=== PATIENT | male | born 1990 | race Caucasian/White ===

== ENCOUNTER → 2021-05-24 10:46 | Outpatient (BNVA) | payer SELFPAY | PROVIDERS: Visit Provider Physician Assistant Medical | DX: Z02.79 Encounter for issue of other medical certificate (principal) ==

== ENCOUNTER 2022-12-04 12:13 | Emergency (ER) | payer MEDICAID, SELFPAY ==
[2022-12-04 12:36] VITALS: BP 143/80; PULSE 93; RESP 18; TEMP 36.4; O2SAT 100; BMI 27.3
--- NOTE | 2022-12-04 12:36 | ED_ITS ---
HPI - Skin/Abscess/Foreign Bdy General Chief complaint: General Medical <LE Perea - Last Filed: 12/04/22 12:37> Stated complaint: Finger pain <LE Perea - Last Filed: 12/04/22 12:37> Time Seen by Provider: 12/04/22 14:23 <LE Perea - Last Filed: 12/04/22 12:37> History of Present Illness HPI narrative: Patient complains of redness pain and swelling to the right middle finger, he did not injury it, he has no fever, no other rashes or swelling in his body, no numbness no weakness no tingling, no red stripe up his arm <LE Sommers - Last Filed: 12/04/22 15:19> Related Data Home medications: Previous Rx's Medication Instructions Recorded doxycycline hyclate 100 mg tablet 100 mg PO BID 7 days #14 tabs 12/04/22 ibuprofen 600 mg tablet 600 mg PO Q6H PRN pain #20 tabs 12/04/22 <LE Perea - Last Filed: 12/04/22 12:37> Allergies/Adverse reactions: Allergies Allergy/AdvReac Type Severity Reaction Status Date / Time No Known Allergies Allergy Verified 12/04/22 12:39 <LE Perea - Last Filed: 12/04/22 12:37> [facility] Past Medical History Source: nursing notes reviewed <LE Sommers - Last Filed: 12/04/22 15:19> Social History Social History: Social History Advance Directives: No Advance Directives Information Provided: No <LE Perea - Last Filed: 12/04/22 12:37> Physical Exam Vital Signs: Vital Signs: Last Vital Signs Temp 97.6 F 12/04/22 12:36 Pulse 75 12/04/22 14:58 Resp 16 12/04/22 14:58 BP 136/59 L 12/04/22 14:58 Pulse Ox 100 12/04/22 14:58 O2 Del Method 12/04/22 14:58 BMI result Body Mass Index 27.3 <LE Perea Last Filed: 12/04/22 12:37> Vital Signs: Last Vital Signs Temp 97.6 F 12/04/22 12:36 Pulse 75 12/04/22 14:58 Resp 16 12/04/22 14:58 BP 136/59 L 12/04/22 14:58 Pulse Ox 100 12/04/22 14:58 O2 Del Method 12/04/22 14:58 BMI result Body Mass Index 27.3 <LE Sommers Last Filed: 12/04/22 15:19> General appearance no distress Head is normocephalic atraumatic Neck is supple Respiratory no distress Extremities the right middle finger has a paronychia around the lateral aspect of the nail bed with swelling redness and tenderness around the nail bed on the lateral aspect, all joints have full range of motion there is no deficit in tendon function and neurovascular intact distal, there is no discharge skin is intact and there is no lymphangitis Other extremities are normal <LE Sommers Last Filed: 12/04/22 15:19> Course Course Course Narrative: RME - 32 yo male presenting with 4 days of worsening right middle finger pain, swelling and tenderness to the distal portion around the nail bed. Exam c/w paronychia. Not diabetic. Stable to go to back to waiting room until treatment room is available. <LE Perea Last Filed: 12/04/22 12:37> RME - 32 yo male presenting with 4 days of worsening right middle finger pain, swelling and tenderness to the distal portion around the nail bed. Exam c/w paronychia. Not diabetic. Stable to go to back to waiting room until treatment room is available. Patient with paronychia of the middle finger with no systemic fever, no felon no tendon function impairment Procedure note the finger is cleansed with Betadine Digital block is applied with 6 cc of 1% lidocaine Nail bed is lifted with scalpel and probed with forceps with discharge of pus and dressing was applied <LE Sommers Last Filed: 12/04/22 15:19> Discharge Plan Discharge Clinical Impression: Paronychia of finger <LE Perea Last Filed: 12/04/22 12:37> Patient Disposition: Home, Self-Care <LE Perea Last Filed: 12/04/22 12:37> Additional Instructions: If all is going well you can pull out the packing and soak the finger in warm water or warm water with Epsom salts If you are not sure if it is getting better and still experiencing pain swelling and redness return in 2 days for packing removal and wound check Return any time for spreading redness worse pain and swelling fever red stripe up arm any sign of worsening infection <LE Perea - Last Filed: 12/04/22 12:37> Prescriptions: New doxycycline hyclate 100 mg tablet 100 mg PO BID 7 Days Qty: 14 0RF Rx Instructions: Take with food ibuprofen 600 mg tablet 600 mg PO Q6H PRN (Reason: pain) Qty: 20 0RF <LE Perea - Last Filed: 12/04/22 12:37>
[2022-12-04 14:58] VITALS: BP 136/59; PULSE 75; RESP 16; O2SAT 100
[2022-12-04] MEDS: Lidocaine HCl 1 % MPF 2 ML VIAL INFILTRATI ×4 (15:44)
--- NOTE | 2022-12-04 15:45 | PC.NURSE ---
Patient seen and discharged by provider .
== END 2022-12-04 15:47 | disposition home or self-care (01) ==
PROVIDERS: Emergency Provider Emergency Medicine
DX: L03.011 Cellulitis of right finger (principal); Z79.899 Other long term (current) drug therapy
CPT/HCPCS: 10060; 99284

== ENCOUNTER 2023-07-11 12:47 | Emergency (ER) | payer MEDICAID, SELFPAY ==
[2023-07-11] VITALS (9 sets, daily range): BP systolic 107–143; BP diastolic 62–81; PULSE 76–100; RESP 15–18; TEMP 36.9–37.5; O2SAT 100; BMI 25.4
--- NOTE | ~2023-07-11 | US_ITS ---
EXAMINATION: US SCROTUM CLINICAL INFORMATION: Multiple groin and scrotal abscesses. COMPARISON: None available. TECHNIQUE: A sonogram of the scrotum was performed assessing peralta-scale appearance and color Doppler flow. Spectral Doppler analysis of the arterial and venous flow were performed in the testes bilaterally. FINDINGS: RIGHT: Right testicle measures 5.3 x 3.2 x 3.2 cm, volume 27.9 mL. Limited testicular microlithiasis. No suspicious mass. Spectral Doppler analysis of the arterial and venous flow is normal in the right testis. Right epididymal head is normal in size. No right hydrocele or varicocele is seen. Right epididymal Doppler flow is normal. LEFT: Left testicle measures 4.5 x 2.8 x 2.7 cm, volume 8.2 mL. Limited testicular microlithiasis. No suspicious mass. Spectral Doppler analysis of the arterial and venous flow is normal in the left testis. Left epididymal head is remarkable for a 2 mm epididymal head cyst. No left varicocele is seen. Left epididymal Doppler flow is increased. There is trace complex left hydrocele. No sonographic correlate to the first reported area of concern. Corresponding to the second reported area of concern is a 3.4 x 5.2 x 1.5 cm left inguinal complex fluid collection which appears to be tracking to the skin surface, with surrounding hypervascularity. US/US scrotum IMPRESSION: * Corresponding to the second reported area of concern is a 5.2 cm complex left inguinal fluid collection which appears to be tracking to the skin surface, with surrounding hypervascularity suggestive of abscess. No sonographic correlate to the first reported area of concern. * The left epididymis is hypervascular which could be seen in the setting of epididymitis though could also potentially be reactive in the setting of associated soft tissue infection. Trace complex left hydrocele. * Limited testicular microlithiasis is present without intratesticular mass or other worrisome findings. Testicular microlithiasis is present without intratesticular mass or other worrisome findings. In the absence of any other risk factors for testicular cancer (e.g., personal history of testicular cancer, a father or brother with testicular cancer, history of cryptorchidism or maldescent, testicular atrophy, or other risk factors), no further imaging or biochemical follow-up is necessary; all that is recommended is routine monthly testicular self-examination. However, if the patient has risk factors for testicular cancer, referral to a urologist for evaluation and determination of an optimal follow-up strategy is recommended. Reference: baylee Kahn. al. AJR: April 2016.
--- NOTE | 2023-07-11 12:59 | ED.GENADULT ---
HPI - General Adult General Chief complaint: Skin/Abscess/Foreign Body Stated complaint: L side abd pain Time Seen by Provider: 07/11/23 13:35 Source: patient, RN notes reviewed and old records reviewed Mode of arrival: ambulatory History of Present Illness HPI narrative: 33-year-old male with no significant past medical history presenting to the ED complaining of multiple groin ingrown hairs/abscesses x2 weeks. States they are currently open and draining, tried to open at home. Admits to similar symptoms in the past. Denies abdominal pain, nausea/vomiting, fever, hematuria, difficulty with urinating or BMs, bloody BMs Onset (ago): week(s) Related Data Previous Rx's Medication Instructions Recorded doxycycline hyclate 100 mg tablet 100 mg PO BID 7 days #14 tabs 12/04/22 ibuprofen 600 mg tablet 600 mg PO Q6H PRN pain #20 tabs 12/04/22 cephalexin 500 mg capsule 500 mg PO QID 7 days #28 caps 07/11/23 doxycycline hyclate 100 mg tablet 100 mg PO BID 7 days #14 tabs 07/11/23 Allergies Allergy/AdvReac Type Severity Reaction Status Date / Time No Known Allergies Allergy Verified 12/04/22 12:39 Review of Systems Review of Systems: Constitutional: No Fever, No Chills ENT/Mouth: No Ear Pain, No Nasal Congestion, No sore throat, No Rhinorrhea, No Swallowing Difficulty Cardiovascular: No Chest Pain, No SOB Respiratory: No Cough, No Sputum Gastrointestinal: No Nausea, No Vomiting, No Abdominal pain Genitourinary: No Dysuria, No Urinary Incontinence/retention, No Urgency, No Flank Pain Musculoskeletal: No joint pain, No Myalgias, No Joint Swelling Skin: +Skin Lesions, No rash Neuro: No Weakness, No Numbness, No Paresthesias Yes all other systems are reviewed and are negative Constitutional: Constitutional: Reports as per HPI [facility] Past Medical History Attestation statement: The following information was validated with the patient. Source: old records reviewed Social History Social History Advance Directives: No Advance Directives Information Provided: No Physical Exam ED Vital Signs: Vital Signs - 24 hr 07/11/23 13:00 07/11/23 18:05 Temperature 98.9 F 99.1 F Pulse Rate 100 83 Respiratory Rate 18 18 Blood Pressure 143/81 H 124/77 Pulse Oximetry 100 Oxygen Delivery Method Room Air BMI result Body Mass Index 25.4 Const General: cooperative, healthy appearing and no acute distress Orientation/consciousness: patient oriented x3 Limitations: no limitations HENMT Head: Yes normal to inspection and Yes atraumatic Ears: hearing grossly normal bilaterally General nose exam: Normal external nose present Face and sinus: Yes normal facial exam Eyes General: appearance normal, both eyes and all related structures EOM: EOMs intact bilaterally Neck Neck: Yes normal visual inspection and Yes no meningeal signs Resp Effort & Inspection: normal respiratory effort and no respiratory distress Cardio Rate: regular rate Heart sounds: S1 normal heart sound present and S2 normal heart sound present GI Inspection: Yes normal to inspection Palpation (GI): Soft to palpation, nontender, no guarding and not rigid Other: + multiple indurated and draining abscesses to bilateral groin/inguinal areas and to left scrotum. Left scrotal abscess with fluctuance. Expressible pus. Tender to palpation. No overlying erythema/warmth or evidence of Ene's gangrene Skin Rashes: no rashes Neuro General: patient oriented x3, tone normal and no meningeal signs Cranial nerves: Yes CN's II-XII intact bilaterally Gait exam (Neuro): Normal gait present Extrem General: Yes normal to inspection Course Course Course Narrative: RME performed by Corrie Grady PA-C. Patient is a 33 year old assigned male at presenting to the emergency department with 2 ingrown hairs to his left groin. Patient placed back in the waiting room pending room availability. >> case discussed with General surgery, Dr. Torres who will perform bedside I&D -1612--no leukocytosis. Anemic to 6.7/22.5 > macrocytic anemia. Platelets low. >> patient denies fatigue, SOB, melena/bloody BMs, hematuria, family history of anemia/personal history of anemia. Patient denies being ETOH abuser > case discussed with Dr. Rios who also spoke with patient. Will consult Hematology > will obtain occult stool, add folate/B12 1611--US scrotum IMPRESSION: *? Corresponding to the second reported area of concern is a 5.2 cm complex left inguinal fluid collection which appears to be tracking to the skin surface, with surrounding hypervascularity suggestive of abscess. No sonographic correlate to the first reported area of concern. *? The left epididymis is hypervascular which could be seen in the setting of epididymitis though could also potentially be reactive in the setting of associated soft tissue infection. Trace complex left hydrocele. *? Limited testicular microlithiasis is present without intratesticular mass or other worrisome findings. Testicular microlithiasis is present without intratesticular mass or other worrisome findings. In the absence of any other risk factors for testicular cancer (e.g., personal history of testicular cancer, a father or brother with testicular cancer, history of cryptorchidism or maldescent, testicular atrophy, or other risk factors), no further imaging or biochemical follow-up is necessary; all that is recommended is routine monthly testicular self-examination. However, if the patient has risk factors for testicular cancer, referral to a urologist for evaluation and determination of an optimal follow-up strategy is recommended. -occult stool negative. -Case discussed with Hematology, Dr. Kuhn who recommended transfusion, and follow-up for workup > blood consent signed and in patient's chart -General surgery, Dr. Torres performed I&D at bedside recommended shower b.i.d., dressing changes b.i.d. and p.r.n. in his office will contact patient on Friday --1814--ED care transferred to LE Farrell pending transfusion and dispo home Medications Administered Discontinued Medications Generic Name Dose Route Start Last Admin Trade Name Freq PRN Reason Stop Dose Admin Cephalexin HCl 500 mg 07/11/23 16:30 07/11/23 17:32 Cephalexin 500 Mg Capsule PO 07/11/23 16:31 500 mg ONCE ONE Administration Doxycycline Monohydrate 100 mg 07/11/23 16:30 07/11/23 17:32 Doxycycline Monohydrate 100 Mg Capsule PO 07/11/23 16:31 100 mg ONCE ONE Administration Lidocaine/Epinephrine 30 ml 07/11/23 15:48 07/11/23 16:50 Lidocaine Hcl 1% Pf/Epi 1:200,000 30 Ml Vial INFILTRATI 07/11/23 15:49 30 ml ONCE ONE Administration Medical Decision Making Medical Decision Making MDM Narrative: 33-year-old male with no significant past medical history presenting to the ED complaining of multiple groin ingrown hairs/abscesses x2 weeks. On exam VSS, NAD/nontoxic appearing, abdomen soft/nontender, physical exam as noted above with multiple indurated and draining abscesses to bilateral groin/inguinal areas and left scrotum. + fluctuance. No evidence of Ene gangrene. No evidence of active cellulitis. Plan: Labs including lactic/blood cultures, scrotal ultrasound, surgical consult Please refer to course for remaining clinical decision making, interpretation of labs/imaging results, and discussions with consultants and/or family members. 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 Torres & Hematology-Dr. Kuhn) Lab Data MDM Lab Attestation statement: I reviewed the patient's lab results. 07/11/23 15:04 07/11/23 15:04 Labs: Lab Results 07/11/23 07/11/23 07/11/23 Range/Units 15:04 15:04 15:40 WBC 5.0 (4.8-10.8) X10*3/uL RBC 2.24 L (4.60-5.80) X10*6/uL Hgb 6.7 L* (14.0-18.0) g/dl Hct 22.5 L (42.0-52.0) % MCV 100.4 H (80.0-98.0) fL MCH 29.9 (27.0-33.0) pg MCHC 29.8 L (31.0-36.0) g/dl RDW 18.5 H (11.0-16.0) % Plt Count 131 L (160-400) X10*3/uL MPV 10.2 (9.4-12.4) fL Immature Gran % (Auto) 0.6 H (0.0-0.4) % Neut % (Auto) 75.5 H (45-73) % Lymph % (Auto) 17.1 L (20-40) % [place]oke % (Auto) 6.0 (2-11) % Eos % (Auto) 0.4 (0-4) % Baso % (Auto) 0.4 (0-2) % Lymph # (Auto) 0.9 L (1.2-4.9) X10*3/uL [place] # (Auto) 0.3 (0.1-1.2) X10*3/uL Eos # (Auto) 0.0 (0.0-0.4) X10*3/uL Baso # (Auto) 0.0 (0.0-0.2) X10*3/uL Abs Immat Gran (auto) 0.03 (0.00-0.03) X10*3/uL Absolute Neuts (auto) 3.8 (2.0-8.3) x10*3/uL Absolute Nucleated RBC 0.000 (0.0-0.012) X10*3/uL Nucleated RBC % (auto) 0.0 (0.0-0.2) /100WBC Sodium 139 (135-145) mmol/L Potassium 4.0 (3.3-5.1) mmol/L Chloride 108 (96-108) mmol/L Carbon Dioxide 25 (22-29) mmol/L Anion Gap 10 L (12-20) BUN 8 L (9-16) mg/dL Creatinine 0.84 (0.5-1.4) mg/dL Estim Creat Clear Calc 119.1 Estimated GFR > 60 Random Glucose 82 (60-115) mg/dL Lactic Acid 1.6 (0.5-2.0) mmol/L Calcium 9.2 (8.4-10.2) mg/dL Magnesium 2.1 (1.6-2.6) mg/dL Ferritin 11 L (20-250) ng/mL Total Bilirubin 0.8 (0.0-1.0) mg/dL Direct Bilirubin 0.3 (0.0-0.5) mg/dL AST 68 H (5-37) U/L ALT 22 (0-40) U/L Alkaline Phosphatase 85 (39-117) U/L Total Protein 6.8 (6.5-8.0) g/dL Albumin 4.1 (3.5-5.0) g/dL Urine Color Urine Appearance Urine pH (5.0-9.0) Ur Specific [place] (1.005-1.025) Urine Protein (Neg-Trace) mg/dL Urine Glucose (UA) (Negative) mg/dL Urine Ketones (Negative) mg/dL Urine Blood (Negative) Urine Nitrite (Negative) Ur Leukocyte Esterase (Negative) Urine RBC (0-2) /HPF Urine WBC (0-5) /HPF Ur Squamous Epith Cells (0-2) /HPF Other Crystals Urine Bacteria (None Seen) Hyaline Casts (0-2) /LPF Stool Occult Blood (NEGATIVE) Blood Type Antibody Screen Crossmatch 07/11/23 07/11/23 07/11/23 Range/Units 16:07 16:32 17:08 WBC (4.8-10.8) X10*3/uL RBC (4.60-5.80) X10*6/uL Hgb (14.0-18.0) g/dl Hct (42.0-52.0) % MCV (80.0-98.0) fL MCH (27.0-33.0) pg MCHC (31.0-36.0) g/dl RDW (11.0-16.0) % Plt Count (160-400) X10*3/uL MPV (9.4-12.4) fL Immature Gran % (Auto) (0.0-0.4) % Neut % (Auto) (45-73) % Lymph % (Auto) (20-40) % [place] % (Auto) (2-11) % Eos % (Auto) (0-4) % Baso % (Auto) (0-2) % Lymph # (Auto) (1.2-4.9) X10*3/uL [place] # (Auto) (0.1-1.2) X10*3/uL Eos # (Auto) (0.0-0.4) X10*3/uL Baso # (Auto) (0.0-0.2) X10*3/uL Abs Immat Gran (auto) (0.00-0.03) X10*3/uL Absolute Neuts (auto) (2.0-8.3) x10*3/uL Absolute Nucleated RBC (0.0-0.012) X10*3/uL Nucleated RBC % (auto) (0.0-0.2) /100WBC Sodium (135-145) mmol/L Potassium (3.3-5.1) mmol/L Chloride (96-108) mmol/L Carbon Dioxide (22-29) mmol/L Anion Gap (12-20) BUN (9-16) mg/dL Creatinine (0.5-1.4) mg/dL Estim Creat Clear Calc Estimated GFR Random Glucose (60-115) mg/dL Lactic Acid (0.5-2.0) mmol/L Calcium (8.4-10.2) mg/dL Magnesium (1.6-2.6) mg/dL Ferritin (20-250) ng/mL Total Bilirubin (0.0-1.0) mg/dL Direct Bilirubin (0.0-0.5) mg/dL AST (5-37) U/L ALT (0-40) U/L Alkaline Phosphatase (39-117) U/L Total Protein (6.5-8.0) g/dL Albumin (3.5-5.0) g/dL Urine Color Dark Yellow Urine Appearance Cloudy Urine pH 6.0 (5.0-9.0) Ur Specific [place] 1.025 (1.005-1.025) Urine Protein Negative (Neg-Trace) mg/dL Urine Glucose (UA) Negative (Negative) mg/dL Urine Ketones Trace (Negative) mg/dL Urine Blood Small (1+) H (Negative) Urine Nitrite Negative (Negative) Ur Leukocyte Esterase Negative (Negative) Urine RBC >20 H (0-2) /HPF Urine WBC 0-5 (0-5) /HPF Ur Squamous Epith Cells 0-2 (0-2) /HPF Other Crystals Present Urine Bacteria None Seen (None Seen) Hyaline Casts 6-10 (0-2) /LPF Stool Occult Blood NEGATIVE (NEGATIVE) Blood Type A Positive Antibody Screen NEGATIVE Crossmatch See Detail Independent Interpretation I performed an independent interpretation of an: Ultrasound Radiology Impression Discussion of test interpretation with radiology: I have reviewed the radiologist's reading. External Record Review External record reviewed: Inpatient record, Office record, Outpatient record, Prior outpatient labs, Prior outpatient radiology, Primary care record and Outside ED record Tests considered The following testing was considered but not selected: As above Prescription Management I considered prescription management with: Pain Medication and Antibiotic Critical Care Time Critical Care Time Critical Care Time: Yes Total Critical Care Time: 60 Attestation: I have personally provided critical care time exclusive of time spent on separately billable procedures. Time includes review of lab data, radiology results, discussion with consultants, and monitoring for potential decompensation. Intervention performed as documented. Discharge Plan Discharge Clinical Impression: Scrotal abscess, Anemia Patient Disposition: Home, Self-Care Instructions: Abscess (ED), Anemia (ED) Additional Instructions: Your abscesses were drained by surgery today in the emergency department. Keflex & doxycycline or antibiotics please take as prescribed Please shower twice a day and change your dressing twice a day or more as needed Surgery office will call you Friday for close follow-up Your also notably anemic in the emergency department with a low blood count, we transfused 2 blood, you need to follow-up with Hematology for further workup If he develops any bleeding, lightheadedness/dizziness, black or bloody stool, shortness of breath return to the ED immediately Prescriptions: New doxycycline hyclate 100 mg tablet 100 mg PO BID 7 Days Qty: 14 0RF cephalexin 500 mg capsule 500 mg PO QID 7 Days Qty: 28 0RF No Action doxycycline hyclate 100 mg tablet 100 mg PO BID 7 Days Qty: 14 0RF Rx Instructions: Take with food ibuprofen 600 mg tablet 600 mg PO Q6H PRN (Reason: pain) Qty: 20 0RF Referrals: [facility] – [place] General Surgeons [Provider Group] - 3 days [facility] – [place] Oncology/Hematology [Provider Group] Stand Alone Forms: Work/School Release
--- NOTE | 2023-07-11 14:44 | ED.SKABFB ---
HPI - Skin/Abscess/Foreign Bdy General Chief complaint: Skin/Abscess/Foreign Body Stated complaint: L side abd pain Time Seen by Provider: 07/11/23 13:35 Source: RN notes reviewed and old records reviewed Related Data Previous Rx's Medication Instructions Recorded doxycycline hyclate 100 mg tablet 100 mg PO BID 7 days #14 tabs 12/04/22 ibuprofen 600 mg tablet 600 mg PO Q6H PRN pain #20 tabs 12/04/22 Allergies Allergy/AdvReac Type Severity Reaction Status Date / Time No Known Allergies Allergy Verified 12/04/22 12:39 Review of Systems Review of Systems: Yes all other systems are reviewed and are negative Constitutional: Constitutional: Reports as per [facility] Past Medical History Attestation statement: The following information was validated with the patient. Source: old records reviewed Social History Social History Advance Directives: No Advance Directives Information Provided: No Physical Exam Vital Signs: Vital Signs: Last Vital Signs Temp 98.9 F 07/11/23 13:00 Pulse 100 07/11/23 13:00 Resp 18 07/11/23 13:00 BP 143/81 H 07/11/23 13:00 Pulse Ox 100 07/11/23 13:00 O2 Del Method Room Air 07/11/23 13:00 BMI result Body Mass Index 25.4 Const: General: cooperative, healthy appearing and no acute distress Orientation/consciousness: patient oriented x3 Limitations: no limitations HEENT: Head: Yes normal to inspection and Yes atraumatic Ears: hearing grossly normal bilaterally General nose exam: Normal external nose present Face and sinus: Yes normal facial exam Eyes: General: appearance normal, both eyes and all related structures EOM: EOMs intact bilaterally Neck: Neck: Yes normal visual inspection and Yes no meningeal signs Resp: Effort & Inspection: normal respiratory effort and no respiratory distress Cardio: Rate: regular rate GI: Inspection: Yes normal to inspection Palpation (GI): Soft to palpation, nontender, no guarding and not rigid Skin: Rashes: no rashes Wounds: no wounds Neuro: General: patient oriented x3, tone normal and no meningeal signs Cranial nerves: Yes CN's II-XII intact bilaterally Gait exam (Neuro): Normal gait present Extrem: General: Yes normal to inspection Medical Decision Making Medical Decision Making MDM Narrative: Please refer to course for remaining clinical decision making, interpretation of labs/imaging results, and discussions with consultants and/or family members. Differential Diagnosis Differential Diagnoses: The differential diagnosis associated with the presentation includes As above Admission/Observation Consideration of admission/observation: Escalation of care including admission/observation considered Lab Data MDM Lab Attestation statement: I reviewed the patient's lab results. Radiology Impression Discussion of test interpretation with radiology: I have reviewed the radiologist's reading. External Record Review External record reviewed: Inpatient record, Office record, Outpatient record, Prior outpatient labs, Prior outpatient radiology, Primary care record and Outside ED record Tests considered The following testing was considered but not selected: As above Discharge Plan Discharge Prescriptions: No Action doxycycline hyclate 100 mg tablet 100 mg PO BID 7 Days Qty: 14 0RF Rx Instructions: Take with food ibuprofen 600 mg tablet 600 mg PO Q6H PRN (Reason: pain) Qty: 20 0RF
[2023-07-11 15:30] LABS: Lactic Acid 1.6 mmol/L (0.5-2.0)
[2023-07-11 15:33] LABS: Anion Gap 10 (12-20); Blood Urea Nitrogen 8 mg/dL (9-16); Calcium 9.2 mg/dL (8.4-10.2); Carbon Dioxide 25 mmol/L (22-29); Chloride 108 mmol/L (96-108); Creatinine Clr Calc Pharmacy 119.1; Estimated Glomerular Filt Rate > 60; Glucose Random 82 mg/dL (60-115); Sodium 139 mmol/L (135-145)
[2023-07-11 15:47] LABS: Basophils Percent Auto 0.4 % (0-2); Eosinophils Percent Auto 0.4 % (0-4); Hematocrit 22.5 % (42.0-52.0); Imm Gran Abs Auto 0.03 X10*3/uL (0.00-0.03); Imm Gran Pct Auto 0.6 % (0.0-0.4); Lymphocytes Absolute Auto 0.9 X10*3/uL (1.2-4.9); Lymphocytes Percent Auto 17.1 % (20-40); Mean Corpuscular HGB Conc 29.8 g/dl (31.0-36.0); Mean Corpuscular Hemoglobin 29.9 pg (27.0-33.0); Mean Corpuscular Volume 100.4 fL (80.0-98.0); Mean Platelet Volume 10.2 fL (9.4-12.4); Monocytes Absolute Auto 0.3 X10*3/uL (0.1-1.2); Neutrophils Absolute Auto 3.8 x10*3/uL (2.0-8.3); Neutrophils Percent Auto 75.5 % (45-73); Platelet Count 131 X10*3/uL (160-400); Red Blood Count 2.24 X10*6/uL (4.60-5.80); Red Cell Distribution Width 18.5 % (11.0-16.0)
--- NOTE | 2023-07-11 15:52 | P.CONGS_ITS ---
History of Present Illness Consult details Consult date: 07/11/23 Narrative: The patient is a 33-year-old gentleman with a history of recurring hidradenitis infections in his left groin. 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 He notes that these infections started several days ago, he saw his PCP and was started on antibiotics but the drainage continued. He denies an y fevers and chills. He also denies any weakness or nicotine use which is relevant is he is noted to have a significant anemia today for Hb 6.7. He denies any other medical problems with the exception of the recurring infections in his groin. He notes that his mother had some sort of anemia and t he his father had some sort of hematoma recently that was intra-abdominal but does not know any of the specifics. He is unaware of any malignancy or other significant health problems in the immediate family. I offered French interpretive services to the patient but he declined. Review of Systems Review of Systems: Yes all other systems are reviewed and are negative Constitutional: Constitutional: Reports as per [facility] Social History Social History Advance Directives: No Advance Directives Information Provided: No Meds Allergies Allergy/AdvReac Type Severity Reaction Status Date / Time No Known Allergies Allergy Verified 12/04/22 12:39 Physical Exam Vital Signs: Vital Signs: Last Vital Signs Temp 98.9 F 07/11/23 13:00 Pulse 100 07/11/23 13:00 Resp 18 07/11/23 13:00 BP 143/81 H 07/11/23 13:00 Pulse Ox 100 07/11/23 13:00 O2 Del Method Room Air 07/11/23 13:00 BMI result Body Mass Index 25.4 On exam he is a pleasant gentleman appearing stated age He is nontoxic and in no acute distress In his left groin, in the inguinal area and in the left scrotum, large, open draining abscesses are present. The scrotal abscess measures approximately 4 by 4 cm; the 2 smaller left inguinal abscesses or oblong measuring 2 x 3 cm. Results Labs 07/11/23 15:04 07/11/23 15:04 Labs: Abnormal lab results 07/11/23 Range/Units 15:04 Anion Gap 10 L (12-20) BUN 8 L (9-16) mg/dL [facility] 07/11/23 15:04 Sodium 139 Potassium 4.0 Chloride 108 Carbon Dioxide 25 BUN 8 L Creatinine 0.84 Calcium 9.2 Hb 6.7, Plts low nml Assessment and Plan (1) Scrotal abscess: Status: Acute (2) Hidradenitis suppurativa: Status: Acute (3) Anemia: Status: Acute Plan Options including antibiotics verses incision and drainage were discussed and apparently understood. I recommended proceeding with I and D under local. Patient tolerated the procedure well. Postoperative instructions regarding wound care, specifically, the patient will shower twice a day using soap, rinse the area and change the dressings at least twice a day and as needed. He is advised not to use tape. My office will contact him for follow-up appointment on Friday. For medical reasons, he may not work. Teagan sent abx, Keflex to the patient's pharmacy. Time Spent With Patient Time: Total time managing care of this patient today ____ minutes. Procedures Date of Service Date of Service: 07/11/23 Abscess I/D Consent for Procedure: Elective - informed consent obtained Site: other (left scrotum) Side (if applicable): left Anesthetic used: with epi Technique: incised with #11 blade Amount of fluid (mL): 4 Packing used?: none Complications: pain Additional comments: tolerated well, culture obtained
[2023-07-11 15:53] LABS: Hemoglobin 6.7 g/dl (14.0-18.0); MANUAL DIFF FLAG NO
[2023-07-11 16:16] LABS: OBS Int Ctl Valid YES; OBS1 NEGATIVE (NEGATIVE)
--- NOTE | 2023-07-11 16:24 | PC.NURSE ---
md haywood at bedside for I&D
[2023-07-11 16:25] LABS: Alanine Aminotransferase 22 U/L (0-40); Albumin Level 4.1 g/dL (3.5-5.0); Alkaline Phosphatase 85 U/L (39-117); Aspartate Amino Transferase 68 U/L (5-37); Bilirubin Direct 0.3 mg/dL (0.0-0.5); Bilirubin Total 0.8 mg/dL (0.0-1.0); Magnesium 2.1 mg/dL (1.6-2.6); Total Protein 6.8 g/dL (6.5-8.0)
[2023-07-11] MEDS: Lidocaine HCl 1% PF/Epi 1:200,000 30 ML VIAL INFILTRATI (16:50)
[2023-07-11 17:21] LABS: Appearance Urine Cloudy; Color Urine Dark Yellow; Glucose Urine UA Negative (Negative); Leukocyte Esterase Urine Negative (Negative); Nitrite Urine Negative (Negative); Specific Gravity - Urine 1.025 (1.005-1.025); UMIC TRIGGER UACC YES; Urine Blood Small (1+) (Negative); Urine Ketones Trace mg/dL (Negative); Urine Protein Negative (Neg-Trace)
[2023-07-11] MEDS: Doxycycline Monohydrate 100 MG CAPSULE PO (17:32)
[2023-07-11] MEDS: cephALEXin 500 MG CAPSULE PO (17:32)
[2023-07-11 17:33] LABS: Bacteria Urine None Seen (None Seen); Other Crystals Urine Present; RBC Urine >20 /HPF (0-2); Squamous Epithelial Cell Urine 0-2 /HPF (0-2); WBC Urine 0-5 /HPF (0-5)
[2023-07-11 17:35] LABS: Ferritin 11 ng/mL (20-250)
[2023-07-11 18:22] LABS: Folate 10.1 ng/mL (> or = 4.0); Vitamin B12 341 pg/mL (200-900)
--- NOTE | 2023-07-11 21:43 | PC.NURSE ---
pt first unit prbc infused no reaction noted. vitals stable, iv site benign. 2nd unit is on its way.
--- NOTE | 2023-07-11 22:08 | PC.NURSE ---
this RN assumed care for patient at 2200. Second unit of blood hung with DONN Gilbert. Pt tolerated first unit with no issues. Now resting comfortably, respirations even and unlabored, skin pwd, alert and oriented x4.
--- NOTE | 2023-07-11 23:57 | PC.NURSE ---
pt continuing to tolerate second transfusion well, no apparent distress, sleeping at this time, respirations equal and unlabored, skin pwd, IV intact, blood flowing appropriately
[2023-07-12 01:01] VITALS: BP 130/80; PULSE 86; RESP 19; TEMP 37.2
== END 2023-07-12 01:09 | disposition home or self-care (01) ==
PROVIDERS: Physician Assistant; Emergency Provider Emergency Medicine Emergency Medical Services; PCP Internal Medicine
DX: N49.2 Inflammatory disorders of scrotum (principal); L73.2 Hidradenitis suppurativa; D64.9 Anemia, unspecified
CPT/HCPCS: 36415; 36430; 54700; 76870; 80048; 80076; 81001; 82272; 82607; 82728; 82746; 83605; 83735; 85025; 86850; 86900; 86901; 86923; 87040; 87070; 87205; 96360; 96361; 99284; 99285; P9016

== ENCOUNTER → 2023-07-11 13:48 | Outpatient (BNV) | payer MEDICAID, SELFPAY | PROVIDERS: Emergency Provider Emergency Medicine Emergency Medical Services; PCP Internal Medicine; Visit Provider Surgery | DX: N49.2 Inflammatory disorders of scrotum (principal); L73.2 Hidradenitis suppurativa; D64.9 Anemia, unspecified | CPT/HCPCS: 10060; 99283 ==

== ENCOUNTER 2023-07-14 10:42 | Outpatient (AMB) | payer MEDICAID, SELFPAY ==
--- NOTE | 2023-07-14 10:44 | MHC.OFFVIS ---
Intake Vital Signs 07/14/23 10:50 Height 5 ft 7 in Weight 160 lb 6 oz BMI 25.1 BP 131/78 Pulse 120 H Pulse Source Pulse Oximeter Pulse Oximetry (%) 99 Oxygen Delivery Method Room Air Intake Visit Reasons: hidradenitis suppurativa, scrotal abscess Priming Powder Premix Blender Required: No Master Esthetician: Master Esthetician offered & declined Accompanied by: Self / Same As Patient Allergies No Known Allergies Allergy (Verified 07/14/23 10:48) Do you need a note to return to daycare/school/sports/work: Yes HPI HPI Comments History of Present Illness Details The patient returns for follow-up after I&D of a large left scrotal abscess related to chronic hidradenitis. This is at least the 3rd episode involving his left groin and he is not established care with a endoscopic technician for preventative measures. In the emergency room, the patient was also noted to have significant anemia and was referred back to his PCP and Hematology. Patient reports he is doing well and tolerating his antibiotic regime. He is currently following local wound care instructions to wash the area twice a day in the shower and change dressings p.r.n.. I recommended he purchase feminine hygiene products which are cheaper than sterile gauze pads. Patient feels he is improved enough to return to work tomorrow. Review of Systems Const All systems reviewed & are unremarkable except as noted in HPI and below Physical Exam Vital Signs: Last Vital Signs Pulse 120 H 07/14/23 10:50 BP 131/78 07/14/23 10:50 Pulse Ox 99 07/14/23 10:50 Oxygen Delivery Method Room Air 07/14/23 10:50 BMI result Body Mass Index 25.1 On exam he is nontoxic He reports he feels better Under loupe magnification, the his dry adenitis abscesses are well drained with serosanguineous, non purulence and non malodorous drainage at this point. Dressings were changed. Assessment & Plan Assessment & Plan (1) Hidradenitis suppurativa: Code(s): L73.2 - Hidradenitis suppurativa (2) Anemia: Code(s): D64.9 - Anemia, unspecified (3) Scrotal abscess: Code(s): N49.2 - Inflammatory disorders of scrotum Plan Instructions regarding wound care reviewed and apparently understood. The importance of completing the prescribed antibiotics were reviewed and apparently understood. Patient declined an full time staff interpreter and noted that he would need a work note to return tomorrow. 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 I will see the patient back in 1 week, he will contact me before then if he is having problems; a referral to [facility] was placed since prevention will be very important. The patient will follow up with his PCP regarding his anemia. Orders: Referrals Dermatology Referral L73.2 - Hidradenitis suppurativa Coding Level of Care Code Est Pt Level 3 (79927) Diagnoses Hidradenitis suppurativa L73.2 Anemia D64.9 Scrotal abscess N49.2
[2023-07-14 10:50] VITALS: BP 131/78; PULSE 120; O2SAT 99; BMI 25.1
== END 2023-07-14 11:01 | disposition home or self-care (01) ==
PROVIDERS: PCP Internal Medicine; Visit Provider Surgery
DX: L73.2 Hidradenitis suppurativa (principal); D64.9 Anemia, unspecified; N49.2 Inflammatory disorders of scrotum
CPT/HCPCS: 99024; 99213

== ENCOUNTER → 2023-07-14 10:42 | Outpatient (BNVA) | payer MEDICAID, SELFPAY | PROVIDERS: PCP Internal Medicine; Visit Provider Surgery | DX: L73.2 Hidradenitis suppurativa (principal); N49.2 Inflammatory disorders of scrotum; D64.9 Anemia, unspecified | CPT/HCPCS: 99212 ==

== ENCOUNTER 2023-07-15 15:38 | Outpatient (REF) | payer MEDICAID, SELFPAY ==
[2023-07-15 17:48] LABS: Imm Gran Abs Auto 0.03 X10*3/uL (0.00-0.03); Imm Gran Pct Auto 0.6 % (0.0-0.4); MANUAL DIFF FLAG SCAN; SCAN SMEAR FLAG 1
[2023-07-15 17:50] LABS: Basophils Percent Auto 0.2 % (0-2); Eosinophils Percent Auto 0.6 % (0-4); Hematocrit 30.6 % (42.0-52.0); Hemoglobin 9.3 g/dl (14.0-18.0); Immature Retic Fraction 27.6 % (2.3-13.4); Lymphocytes Percent Auto 19.8 % (20-40); Mean Corpuscular HGB Conc 30.4 g/dl (31.0-36.0); Mean Corpuscular Hemoglobin 30.2 pg (27.0-33.0); Mean Corpuscular Volume 99.4 fL (80.0-98.0); Mean Platelet Volume 11.8 fL (9.4-12.4); Monocytes Absolute Auto 0.3 X10*3/uL (0.1-1.2); Monocytes Percent Auto 6.2 % (2-11); Neutrophils Absolute Auto 3.7 x10*3/uL (2.0-8.3); Neutrophils Percent Auto 72.6 % (45-73); Platelet Count 135 X10*3/uL (160-400); Red Blood Count 3.08 X10*6/uL (4.60-5.80); Red Cell Distribution Width 17.2 % (11.0-16.0); Retic HGB Equivalent 29.6 pg (30.0-35.0); Reticulocyte Percent 4.4 % (0.5-1.8); Reticulocytes Absolute 0.135 X10*6/uL (0.026-0.095)
[2023-07-15 18:27] LABS: Iron 44 mcg/dL (45-160); Percent Iron Saturation 13 % (15-50); Total Iron Binding Capacity 345 mcg/dL (228-428); Unsaturated Iron Binding 301 ug/dL
[2023-07-15 19:38] LABS: SLIDE REVIEW VERIFIED
== END 2023-07-15 15:39 | disposition home or self-care (01) ==
LOC: HO.CHCLDS 15:38
PROVIDERS: Visit Provider Internal Medicine
DX: D53.9 Nutritional anemia, unspecified (principal)
CPT/HCPCS: 36415; 83540; 85025; 85045

== ENCOUNTER 2023-07-21 14:57 | Outpatient (AMB) | payer MEDICAID, SELFPAY ==
[2023-07-21 14:58] VITALS: BP 118/70; TEMP 36.6; BMI 25.1
--- NOTE | 2023-07-21 14:58 | A.OFFVIS_ITS ---
Intake Vital Signs 07/21/23 14:58 Height 5 ft 7 in Weight 160 lb BMI 25.1 BP 118/70 Blood Pressure Location Rt brachial Position Sitting Temp 97.8 F Temp Source Tympanic Intake Visit Reasons: hidradenitis suppurativa, 1 wk follow up Station Usher Required: No Chief Maintenance Supervisor: Chief Maintenance Supervisor offered & declined Allergies No Known Allergies Allergy (Verified 07/14/23 10:48) Medication List - Last Reconciled 07/21/23 by Gagandeep Torres MD cephalexin 500 mg PO QID 7 days doxycycline hyclate 100 mg PO BID 7 days HPI HPI Comments History of Present Illness Details The patient returns for follow-up after incision and drainage of left scrotal abscess secondary to hidradenitis; he has an appointment with the facepiece line supervisor at the end of July and states that his PCP renewed his antibiotics given the time interval. The patient is continuing to wash the area twice a day and reports he is doing much better. He otherwise denies interval change Review of Systems Const All systems reviewed & are unremarkable except as noted in HPI and below Physical Exam Vital Signs: Last Vital Signs Temp 97.8 F 07/21/23 14:58 BP 118/70 07/21/23 14:58 BMI result Body Mass Index 25.1 On exam he is nontoxic Patient was examined standing and there is clear drainage from the abscess and the left scrotal area. It was wiped and redressed. There is no fluctuance or erythema and it is improved since last week Assessment & Plan Assessment & Plan (1) Hidradenitis suppurativa: Code(s): L73.2 - Hidradenitis suppurativa (2) Anemia: Code(s): D64.9 - Anemia, unspecified (3) Scrotal abscess: Code(s): N49.2 - Inflammatory disorders of scrotum Plan The patient will contact me if he is clinically worsening otherwise he will continue local wound care and see me in 2 weeks. The importance of follow-up with his PCP regarding the recently diagnosed anemia was also discussed and apparently understood. Coding Level of Care Code Est Pt Level 3 (75710) Diagnoses Hidradenitis suppurativa L73.2 Anemia D64.9 Scrotal abscess N49.2
== END 2023-07-21 15:02 | disposition home or self-care (01) ==
LOC: HO.HGS 14:57
PROVIDERS: PCP Internal Medicine; Visit Provider Surgery
DX: L73.2 Hidradenitis suppurativa (principal); D64.9 Anemia, unspecified; N49.2 Inflammatory disorders of scrotum
CPT/HCPCS: 99024; 99213

== ENCOUNTER → 2023-07-21 14:57 | Outpatient (BNVA) | payer MEDICAID, SELFPAY | PROVIDERS: PCP Internal Medicine; Visit Provider Surgery | DX: L73.2 Hidradenitis suppurativa (principal); N49.2 Inflammatory disorders of scrotum; D64.9 Anemia, unspecified | CPT/HCPCS: 99212 ==

== ENCOUNTER 2023-08-19 18:00 | Outpatient (REF) | payer MEDICAID, SELFPAY | END 2023-08-19 18:01 | disposition home or self-care (01) | LOC: HO.HHCLNP 18:00 | PROVIDERS: Visit Provider Internal Medicine | DX: R10.2 Pelvic and perineal pain (principal) | CPT/HCPCS: 87070; 87205 ==

== ENCOUNTER 2023-09-16 12:40 | Outpatient (REF) | payer MEDICAID, SELFPAY ==
[2023-09-16 14:43] LABS: MANUAL DIFF FLAG NO
[2023-09-16 15:01] LABS: Basophils Percent Auto 0.7 % (0-2); Eosinophils Percent Auto 0.7 % (0-4); Hematocrit 27.9 % (42.0-52.0); Hemoglobin 8.4 g/dl (14.0-18.0); Imm Gran Abs Auto 0.03 X10*3/uL (0.00-0.03); Imm Gran Pct Auto 0.5 % (0.0-0.4); Lymphocytes Absolute Auto 0.8 X10*3/uL (1.2-4.9); Lymphocytes Percent Auto 14.5 % (20-40); Mean Corpuscular HGB Conc 30.1 g/dl (31.0-36.0); Mean Corpuscular Hemoglobin 31.1 pg (27.0-33.0); Mean Corpuscular Volume 103.3 fL (80.0-98.0); Mean Platelet Volume 11.9 fL (9.4-12.4); Monocytes Absolute Auto 0.4 X10*3/uL (0.1-1.2); Monocytes Percent Auto 7.2 % (2-11); Neutrophils Absolute Auto 4.4 x10*3/uL (2.0-8.3); Neutrophils Percent Auto 76.4 % (45-73); Platelet Count 137 X10*3/uL (160-400); Red Cell Distribution Width 18.1 % (11.0-16.0); White Blood Count 5.7 X10*3/uL (4.8-10.8)
== END 2023-09-16 12:41 | disposition home or self-care (01) ==
LOC: HO.CHCLDS 12:40
PROVIDERS: Visit Provider Internal Medicine
DX: D53.9 Nutritional anemia, unspecified (principal)
CPT/HCPCS: 36415; 85025

== ENCOUNTER 2023-10-07 12:47 | Outpatient (REF) | payer MEDICAID, SELFPAY ==
[2023-10-07 14:55] LABS: MANUAL DIFF FLAG NO
[2023-10-07 14:59] LABS: Basophils Percent Auto 0.3 % (0-2); Eosinophils Percent Auto 0.3 % (0-4); Hematocrit 26.7 % (42.0-52.0); Imm Gran Abs Auto 0.07 X10*3/uL (0.00-0.03); Imm Gran Pct Auto 0.8 % (0.0-0.4); Lymphocytes Absolute Auto 0.4 X10*3/uL (1.2-4.9); Lymphocytes Percent Auto 3.9 % (20-40); Mean Corpuscular Volume 103.5 fL (80.0-98.0); Monocytes Absolute Auto 0.4 X10*3/uL (0.1-1.2); Monocytes Percent Auto 4.7 % (2-11); Platelet Count 143 X10*3/uL (160-400); Red Blood Count 2.58 X10*6/uL (4.60-5.80); Red Cell Distribution Width 18.4 % (11.0-16.0); Retic HGB Equivalent 27.7 pg (30.0-35.0); Reticulocyte Percent 6.2 % (0.5-1.8); Reticulocytes Absolute 0.159 X10*6/uL (0.026-0.095); White Blood Count 8.9 X10*3/uL (4.8-10.8)
[2023-10-07 15:18] LABS: C Reactive Protein 2.54 mg/dL (< or = 0.50); Iron 39 mcg/dL (45-160); Percent Iron Saturation 13 % (15-50); Total Iron Binding Capacity 295 mcg/dL (228-428); Unsaturated Iron Binding 256 ug/dL
[2023-10-07 15:35] LABS: Ferritin 19 ng/mL (20-250)
[2023-10-07 15:45] LABS: Erythrocyte Sedimentation Rate 22 MM/HR (0-15)
[2023-10-07 15:46] LABS: Vitamin B12 346 pg/mL (200-900)
[2023-10-09 09:58] LABS: RPR Rapid Plasma Reagin NON-REACTIVE (NON-REACTIVE)
== END 2023-10-07 12:48 | disposition home or self-care (01) ==
LOC: HO.CHCLDS 12:47
PROVIDERS: Visit Provider Internal Medicine
DX: N50.89 Other specified disorders of the male genital organs (principal); N48.5 Ulcer of penis
CPT/HCPCS: 36415; 82607; 82728; 82746; 83540; 85025; 85045; 85652; 86140; 86592; 87070; 87205; 87491; 87591

== ENCOUNTER → 2023-10-22 11:20 | Outpatient (BNV) | payer MEDICAID, SELFPAY | PROVIDERS: PCP Internal Medicine; Referring Provider Internal Medicine; Visit Provider Internal Medicine | DX: D61.818 Other pancytopenia (principal) | CPT/HCPCS: 99204; 99214 ==

== ENCOUNTER 2023-10-27 14:17 | Outpatient (REF) | payer MEDICAID, SELFPAY | END 2023-10-27 14:18 | disposition home or self-care (01) | LOC: HO.MDS 14:17 | PROVIDERS: PCP Internal Medicine; Visit Provider Internal Medicine | DX: D50.8 Other iron deficiency anemias (principal) | CPT/HCPCS: 96365; J1756 ==

== ENCOUNTER 2023-10-28 09:00 | Day surgery (SDC) | payer MEDICAID, SELFPAY ==
--- NOTE | ~2023-10-28 | CT_ITS ---
Pancytopenia. Hematology/oncology requests a bone marrow biopsy PROCEDURES: 1. Limited preprocedure CT of the pelvis. Permanent images saved in PACS. 2. 11 g bone marrow core biopsy of the right posterior iliac spine 3. 11 g bone marrow aspirate of the right posterior iliac spine CLINICIANS: Jase Montoya PA-C MEDICATIONS: -Versed 1.5 mg, Fentanyl 75 mcg, and lidocaine 1% 10 mL SQ -Antibiotics: None -For additional details, please see nursing flowsheet. COMPLICATIONS: None ESTIMATED BLOOD LOSS: < 5 ml CONTRAST: None SPECIMENS: 11 g core placed in formalin. Bone marrow aspirate placed in EDTA and sodium heparin tubes MODERATE SEDATION TIME: 20 min PROCEDURE NOTE: The procedure, risks, benefits, and alternatives were carefully explained to the patient and written informed consent was obtained. The patient was placed prone on the CT table. A timeout was performed. A limited CT of the pelvis was performed to localize posterior iliac spine and choose appropriate needle entry and trajectory. The patient was prepped and draped in usual sterile fashion. The skin, subcutaneous tissues, and periosteum were anesthetized with lidocaine. Under CT guidance, an 11-gauge bone marrow biopsy needle was advanced into the posterior iliac spine, with the tip positioned slightly cephalad. An 11-gauge core biopsy of the bone marrow was performed and was placed in formalin. Next, the 11-gauge bone marrow biopsy needle was then advanced into the posterior iliac spine, or CT guidance, with the tip positioned slightly caudal. A bone marrow aspirate was performed. The specimen was placed in the provided EDTA and sodium heparin tubes. The needle was removed. A dry dressing was applied and secured with Tegaderm. There were no immediate complications. The patient was stable after the procedure and was transferred to the post anesthesia care unit. The procedure was done under moderate sedation with a dedicated nurse for monitoring of vital signs. CT/CT biopsy aspirate bone marrow Impression: CT-guided bone marrow biopsy and aspirate This procedure was performed by Jase Montoya PA-C and supervised by Dr. Camargo.
[2023-10-28 09:11] VITALS: BMI 25.1
[2023-10-28 09:41] LABS: INTERNATIONAL NORM RATIO 1.1 (0.9-1.1); Prothrombin Time 13.5 SEC (11.1-13.3)
[2023-10-28 09:43] LABS: Partial Thromboplastin Time 30.1 SEC (26.0-36.4)
[2023-10-28 09:45] VITALS: BP 124/69; PULSE 92; RESP 18; TEMP 36.6; O2SAT 100
[2023-10-28 11:20] VITALS: BP 120/70; PULSE 94; RESP 16; TEMP 37.2; O2SAT 100
[2023-10-28 11:35] VITALS: BP 130/55; PULSE 91; RESP 14; O2SAT 99
[2023-10-28 11:50] VITALS: BP 124/65; PULSE 93; RESP 16; O2SAT 99
[2023-10-28 12:05] VITALS: BP 115/71; PULSE 89; RESP 15; TEMP 36.9; O2SAT 100
[2023-10-28 12:28] LABS: Bone Marrow SEE SEPARATE REPORT
== END 2023-10-28 12:09 | disposition home or self-care (01) ==
PROVIDERS: Physician Assistant Surgical; Radiology Vascular & Interventional Radiology; PCP Internal Medicine; Visit Provider Internal Medicine
PROC: (CPT 38221; principal; 2023-10-28 10:30)
DX: D64.9 Anemia, unspecified (principal); D61.818 Other pancytopenia; Z79.899 Other long term (current) drug therapy; Z87.891 Personal history of nicotine dependence
CPT/HCPCS: 36415; 38222; 85610; 85730; 88184; 88185; 88237; 88264; 88305; 88311; 88313; 88342; 99152; J2250; J2310; J3010

== ENCOUNTER → 2023-10-28 10:37 | Outpatient (BNV) | payer MEDICAID, SELFPAY | PROVIDERS: PCP Internal Medicine; Visit Provider Radiology Vascular & Interventional Radiology | DX: D61.818 Other pancytopenia (principal) | CPT/HCPCS: 38222; 77012 ==

== ENCOUNTER 2023-11-03 12:29 | Outpatient (REF) | payer MEDICAID, SELFPAY | END 2023-11-03 12:30 | disposition home or self-care (01) | LOC: HO.MDS 12:29 | PROVIDERS: Visit Provider Internal Medicine | DX: J45.909 Unspecified asthma, uncomplicated (principal) | CPT/HCPCS: J1756 ==

== ENCOUNTER 2023-11-03 12:30 | Outpatient (REF) | payer MEDICAID, SELFPAY ==
--- NOTE | ~2023-11-03 | CT_ITS ---
EXAMINATION: CT CHEST, ABDOMEN AND PELVIS WITH CONTRAST CLINICAL INFORMATION: Lymphoma. COMPARISON: None available. TECHNIQUE: Multidetector volumetric imaging was performed of the chest, abdomen and pelvis following administration of 85 mL Omnipaque 350 intravenous contrast. Oral contrast was administered. Sagittal and coronal reformatted images were obtained on the technologist's workstation. This CT examination was performed using dose optimization techniques as appropriate, variously including the following: *Automated exposure control *Adjustment of mA and/or kV according to patient size (this includes techniques or standardized protocols for targeted exams where dose is matched to indication/reason for exam; i.e. extremities or head) *Use of iterative reconstruction technique DLP: 468.7 mGy-cm FINDINGS: CHEST: CHEST WALL: No acute abnormality. AXILLA: No lymphadenopathy. MEDIASTINUM: Subcarinal lymph node measures 1.1 x 1.4 cm. Right hilar lymph node measures 1.0 x 1.4 cm. Great vessels are of normal caliber. Heart size is normal. No pericardial effusion. CORONARY ARTERY CALCIFICATION: No significant coronary artery calcification appreciated on this exam. PLEURA: There is no pleural effusion. LUNGS: No suspicious pulmonary nodule. No focal consolidation. Central airways are patent. ABDOMEN AND PELVIS: ABDOMINAL AND PELVIC WALL: No acute abnormality. LIVER AND BILIARY TREE: There is diffuse heterogeneity and infiltrative hypodensity within the peripheral aspect of the posterior right hepatic lobe as well as the lateral left hepatic lobe. Mild intrahepatic biliary ductal dilatation is suspected. GALLBLADDER: Wall thickening and enhancement at the fundus of the gallbladder. PANCREAS: No ductal dilatation. SPLEEN: Enlarged. Measures 14.6 cm in sagittal dimension. ADRENAL GLANDS: No adrenal mass. KIDNEYS AND URETERS: The kidneys are symmetric in size and enhancement. There is a 1.5 cm lower pole left renal cyst. No further imaging follow-up is needed. No hydronephrosis or perinephric fluid collection. GASTROINTESTINAL TRACT: Small and large bowel loops are of normal caliber. No small bowel obstruction. Appendix is within normal limits. VASCULAR: Normal caliber abdominal aorta. LYMPH NODES: No bulky lymphadenopathy. FREE FLUID: No free fluid. BLADDER: Underdistended. PELVIC VISCERA: Unremarkable. OSSEOUS STRUCTURES: No destructive bone lesions. CT/CT abdomen pelvis w IV con IMPRESSION: Infiltrative hypodensity within the posterior right hepatic lobe and lateral left hepatic lobe. This may represent lymphomatous infiltration. Splenomegaly. Wall thickening and enhancement at the fundus of the gallbladder may represent gallbladder adenomyomatosis. MRI abdomen may be considered for further characterization of the above findings.
[2023-11-03] MEDS: iohexoL 350 MG/ML 100 ML INFUS..BTL 85 ML IV (12:57)
== END 2023-11-03 12:31 | disposition home or self-care (01) ==
LOC: HO.CT 12:30
PROVIDERS: PCP Internal Medicine; Visit Provider Internal Medicine
DX: D64.9 Anemia, unspecified (principal)
CPT/HCPCS: 71260; 74177; Q9967

== ENCOUNTER 2023-11-06 07:54 | Outpatient (REF) | payer MEDICAID, SELFPAY ==
--- NOTE | ~2023-11-06 | CT_ITS ---
EXAMINATION: CT CHEST, ABDOMEN AND PELVIS WITH CONTRAST CLINICAL INFORMATION: Lymphoma. COMPARISON: None available. TECHNIQUE: Multidetector volumetric imaging was performed of the chest, abdomen and pelvis following administration of 85 mL Omnipaque 350 intravenous contrast. Oral contrast was administered. Sagittal and coronal reformatted images were obtained on the technologist's workstation. This CT examination was performed using dose optimization techniques as appropriate, variously including the following: *Automated exposure control *Adjustment of mA and/or kV according to patient size (this includes techniques or standardized protocols for targeted exams where dose is matched to indication/reason for exam; i.e. extremities or head) *Use of iterative reconstruction technique DLP: 468.7 mGy-cm FINDINGS: CHEST: CHEST WALL: No acute abnormality. AXILLA: No lymphadenopathy. MEDIASTINUM: Subcarinal lymph node measures 1.1 x 1.4 cm. Right hilar lymph node measures 1.0 x 1.4 cm. Great vessels are of normal caliber. Heart size is normal. No pericardial effusion. CORONARY ARTERY CALCIFICATION: No significant coronary artery calcification appreciated on this exam. PLEURA: There is no pleural effusion. LUNGS: No suspicious pulmonary nodule. No focal consolidation. Central airways are patent. ABDOMEN AND PELVIS: ABDOMINAL AND PELVIC WALL: No acute abnormality. LIVER AND BILIARY TREE: There is diffuse heterogeneity and infiltrative hypodensity within the peripheral aspect of the posterior right hepatic lobe as well as the lateral left hepatic lobe. Mild intrahepatic biliary ductal dilatation is suspected. GALLBLADDER: Wall thickening and enhancement at the fundus of the gallbladder. PANCREAS: No ductal dilatation. SPLEEN: Enlarged. Measures 14.6 cm in sagittal dimension. ADRENAL GLANDS: No adrenal mass. KIDNEYS AND URETERS: The kidneys are symmetric in size and enhancement. There is a 1.5 cm lower pole left renal cyst. No further imaging follow-up is needed. No hydronephrosis or perinephric fluid collection. GASTROINTESTINAL TRACT: Small and large bowel loops are of normal caliber. No small bowel obstruction. Appendix is within normal limits. VASCULAR: Normal caliber abdominal aorta. LYMPH NODES: No bulky lymphadenopathy. FREE FLUID: No free fluid. BLADDER: Underdistended. PELVIC VISCERA: Unremarkable. OSSEOUS STRUCTURES: No destructive bone lesions. CT/CT abdomen pelvis w IV con IMPRESSION: Infiltrative hypodensity within the posterior right hepatic lobe and lateral left hepatic lobe. This may represent lymphomatous infiltration. Splenomegaly. Wall thickening and enhancement at the fundus of the gallbladder may represent gallbladder adenomyomatosis. MRI abdomen may be considered for further characterization of the above findings.
[2023-11-06] MEDS: iohexoL 350 MG/ML 100 ML INFUS..BTL IV (08:42)
== END 2023-11-06 07:55 | disposition home or self-care (01) ==
LOC: HO.CT 07:54
PROVIDERS: PCP Internal Medicine; Visit Provider Internal Medicine
DX: D64.9 Anemia, unspecified (principal); C85.90 Non-Hodgkin lymphoma, unspecified, unspecified site
CPT/HCPCS: 71260; 74177; Q9967

== ENCOUNTER 2024-01-15 16:02 | Outpatient (REF) | payer MEDICAID, SELFPAY ==
[2024-01-15 17:21] LABS: MANUAL DIFF FLAG NO
[2024-01-15 17:31] LABS: Basophils Percent Auto 0.6 % (0-2); Eosinophils Percent Auto 0.8 % (0-4); Hematocrit 32.8 % (42.0-52.0); Hemoglobin 10.4 g/dl (14.0-18.0); Imm Gran Abs Auto 0.01 X10*3/uL (0.00-0.03); Imm Gran Pct Auto 0.3 % (0.0-0.4); Lymphocytes Absolute Auto 0.9 X10*3/uL (1.2-4.9); Lymphocytes Percent Auto 25.7 % (20-40); Mean Corpuscular HGB Conc 31.7 g/dl (31.0-36.0); Mean Corpuscular Hemoglobin 32.6 pg (27.0-33.0); Mean Corpuscular Volume 102.8 fL (80.0-98.0); Mean Platelet Volume 12.6 fL (9.4-12.4); Monocytes Absolute Auto 0.3 X10*3/uL (0.1-1.2); Monocytes Percent Auto 9.2 % (2-11); Neutrophils Absolute Auto 2.3 x10*3/uL (2.0-8.3); Neutrophils Percent Auto 63.4 % (45-73); Platelet Count 133 X10*3/uL (160-400); Red Blood Count 3.19 X10*6/uL (4.60-5.80); Red Cell Distribution Width 17.2 % (11.0-16.0); White Blood Count 3.6 X10*3/uL (4.8-10.8)
[2024-01-15 18:02] LABS: Alanine Aminotransferase 67 U/L (0-40); Albumin Level 4.8 g/dL (3.5-5.0); Alkaline Phosphatase 98 U/L (39-117); Anion Gap 14 (12-20); Aspartate Amino Transferase 31 U/L (5-37); Bilirubin Total 1.9 mg/dL (0.0-1.0); Blood Urea Nitrogen 11 mg/dL (9-16); Calcium 9.1 mg/dL (8.4-10.2); Carbon Dioxide 26 mmol/L (22-29); Chloride 103 mmol/L (96-108); Estimated Glomerular Filt Rate > 60; Glucose Random 84 mg/dL (60-115); Potassium 3.4 mmol/L (3.3-5.1); Sodium 140 mmol/L (135-145); Total Protein 7.3 g/dL (6.5-8.0)
== END 2024-01-15 16:03 | disposition home or self-care (01) ==
LOC: HO.CHCLDS 16:02
PROVIDERS: Visit Provider Internal Medicine
DX: D59.5 Paroxysmal nocturnal hemoglobinuria [Marchiafava-Micheli] (principal)
CPT/HCPCS: 36415; 80053; 85025

== ENCOUNTER 2024-04-14 10:41 | Outpatient (REF) | payer MEDICAID, SELFPAY ==
[2024-04-14 14:43] LABS: MANUAL DIFF FLAG NO
[2024-04-14 15:11] LABS: Basophils Percent Auto 0.7 % (0-2); Eosinophils Percent Auto 0.7 % (0-4); Hematocrit 34.7 % (42.0-52.0); Hemoglobin 11.4 g/dl (14.0-18.0); Imm Gran Abs Auto 0.01 X10*3/uL (0.00-0.03); Imm Gran Pct Auto 0.3 % (0.0-0.4); Lymphocytes Absolute Auto 0.7 X10*3/uL (1.2-4.9); Lymphocytes Percent Auto 22.9 % (20-40); Mean Corpuscular HGB Conc 32.9 g/dl (31.0-36.0); Mean Corpuscular Volume 106.4 fL (80.0-98.0); Monocytes Absolute Auto 0.3 X10*3/uL (0.1-1.2); Monocytes Percent Auto 8.6 % (2-11); Neutrophils Percent Auto 66.8 % (45-73); Red Blood Count 3.26 X10*6/uL (4.60-5.80); Red Cell Distribution Width 15.5 % (11.0-16.0); White Blood Count 2.9 X10*3/uL (4.8-10.8)
[2024-04-14 15:26] LABS: Alanine Aminotransferase 18 U/L (0-40); Albumin Level 4.6 g/dL (3.5-5.0); Alkaline Phosphatase 74 U/L (39-117); Anion Gap 13 (12-20); Aspartate Amino Transferase 23 U/L (5-37); Bilirubin Total 1.4 mg/dL (0.0-1.0); Blood Urea Nitrogen 11 mg/dL (9-16); Calcium 9.3 mg/dL (8.4-10.2); Carbon Dioxide 26 mmol/L (22-29); Chloride 108 mmol/L (96-108); Cholesterol 89 mg/dL (<200); Estimated Glomerular Filt Rate > 60; Glucose Random 71 mg/dL (60-115); HDL Cholesterol 37 mg/dL (>40); LDL Cholesterol Calculated 41 mg/dL (<100); Potassium 3.7 mmol/L (3.3-5.1); Sodium 143 mmol/L (135-145); Total Protein 6.9 g/dL (6.5-8.0); Triglycerides 56 mg/dL (<150)
[2024-04-14 15:41] LABS: Platelet Count 95 X10*3/uL (160-400)
[2024-04-15 04:34] LABS: HIV AB/AG Nonreactive (Nonreactive); HIV Num 1 0.04 S/CO (0.00-0.99); ~HepC Num1 0.15 S/CO (0.00-0.79); ~Hepatitis C Antibody Nonreactive (Nonreactive)
[2024-04-15 14:54] LABS: Haptoglobin <10 mg/dL (43-212)
== END 2024-04-14 10:42 | disposition home or self-care (01) ==
LOC: HO.CHCLDS 10:41
PROVIDERS: Visit Provider Internal Medicine
DX: Z00.00 Encounter for general adult medical examination without abnormal findings (principal); D59.5 Paroxysmal nocturnal hemoglobinuria [Marchiafava-Micheli]
CPT/HCPCS: 36415; 80053; 80061; 83010; 85025; 86803; 87389

== ENCOUNTER 2024-07-13 13:40 | Outpatient (REF) | payer MEDICAID, SELFPAY ==
[2024-07-13 14:28] LABS: MANUAL DIFF FLAG NO
[2024-07-13 14:35] LABS: Basophils Percent Auto 0.6 % (0-2); Eosinophils Absolute Auto 0.1 X10*3/uL (0.0-0.4); Eosinophils Percent Auto 1.5 % (0-4); Hematocrit 36.7 % (42.0-52.0); Hemoglobin 12.4 g/dl (14.0-18.0); Imm Gran Abs Auto 0.01 X10*3/uL (0.00-0.03); Imm Gran Pct Auto 0.3 % (0.0-0.4); Lymphocytes Percent Auto 30.8 % (20-40); Mean Corpuscular HGB Conc 33.8 g/dl (31.0-36.0); Mean Corpuscular Hemoglobin 35.1 pg (27.0-33.0); Monocytes Absolute Auto 0.3 X10*3/uL (0.1-1.2); Monocytes Percent Auto 7.6 % (2-11); Neutrophils Percent Auto 59.2 % (45-73); Platelet Count 115 X10*3/uL (160-400); Red Blood Count 3.53 X10*6/uL (4.60-5.80); White Blood Count 3.3 X10*3/uL (4.8-10.8)
[2024-07-13 14:53] LABS: Alanine Aminotransferase 38 U/L (0-40); Albumin Level 4.6 g/dL (3.5-5.0); Alkaline Phosphatase 81 U/L (39-117); Anion Gap 13 (12-20); Aspartate Amino Transferase 29 U/L (5-37); Bilirubin Total 1.1 mg/dL (0.0-1.0); Blood Urea Nitrogen 8 mg/dL (9-16); Calcium 9.5 mg/dL (8.4-10.2); Carbon Dioxide 25 mmol/L (22-29); Chloride 107 mmol/L (96-108); Estimated Glomerular Filt Rate > 60; Glucose Random 104 mg/dL (60-115); Potassium 3.6 mmol/L (3.3-5.1); Sodium 141 mmol/L (135-145); Total Protein 7.1 g/dL (6.5-8.0)
== END 2024-07-13 13:41 | disposition home or self-care (01) ==
LOC: HO.CHCLDS 13:40
PROVIDERS: Visit Provider Internal Medicine
DX: D59.9 Acquired hemolytic anemia, unspecified (principal)
CPT/HCPCS: 36415; 80053; 85025

== ENCOUNTER 2024-09-09 15:10 | Outpatient (REF) | payer MEDICAID, SELFPAY ==
[2024-09-09 17:46] LABS: MANUAL DIFF FLAG NO
[2024-09-09 17:47] LABS: Basophils Percent Auto 0.8 % (0-2); Eosinophils Absolute Auto 0.1 X10*3/uL (0.0-0.4); Eosinophils Percent Auto 1.4 % (0-4); Hematocrit 35.5 % (42.0-52.0); Hemoglobin 12.2 g/dl (14.0-18.0); Imm Gran Abs Auto 0.02 X10*3/uL (0.00-0.03); Imm Gran Pct Auto 0.6 % (0.0-0.4); Lymphocytes Absolute Auto 1.2 X10*3/uL (1.2-4.9); Lymphocytes Percent Auto 33.6 % (20-40); Mean Corpuscular HGB Conc 34.4 g/dl (31.0-36.0); Mean Corpuscular Hemoglobin 35.8 pg (27.0-33.0); Mean Corpuscular Volume 104.1 fL (80.0-98.0); Mean Platelet Volume 11.1 fL (9.4-12.4); Monocytes Absolute Auto 0.3 X10*3/uL (0.1-1.2); Monocytes Percent Auto 7.6 % (2-11); Platelet Count 121 X10*3/uL (160-400); Red Blood Count 3.41 X10*6/uL (4.60-5.80); Red Cell Distribution Width 14.3 % (11.0-16.0); White Blood Count 3.6 X10*3/uL (4.8-10.8)
[2024-09-09 17:57] LABS: Alanine Aminotransferase 29 U/L (0-40); Albumin Level 4.5 g/dL (3.5-5.0); Alkaline Phosphatase 87 U/L (39-117); Anion Gap 12 (12-20); Aspartate Amino Transferase 24 U/L (5-37); Bilirubin Total 0.9 mg/dL (0.0-1.0); Blood Urea Nitrogen 9 mg/dL (9-16); Calcium 9.3 mg/dL (8.4-10.2); Carbon Dioxide 26 mmol/L (22-29); Chloride 107 mmol/L (96-108); Estimated Glomerular Filt Rate > 60; Glucose Random 102 mg/dL (60-115); Potassium 3.9 mmol/L (3.3-5.1); Sodium 141 mmol/L (135-145); Total Protein 6.9 g/dL (6.5-8.0)
== END 2024-09-09 15:11 | disposition home or self-care (01) ==
LOC: HO.CHCLDS 15:10
PROVIDERS: Visit Provider Internal Medicine
DX: D59.5 Paroxysmal nocturnal hemoglobinuria [Marchiafava-Micheli] (principal)
CPT/HCPCS: 36415; 80053; 85025

== ENCOUNTER 2024-11-04 15:57 | Outpatient (REF) | payer MEDICAID, SELFPAY ==
--- OUTSIDE RECORDS SUMMARY | 2024-11-04 15:59 | XMS_ITS | Continuity of Care Document ---
Author Organization [facility] Address [address] [place] [id number] Assessment No assessment recorded. Plan of Treatment Reminders Order Date Submit Date Provider Last Modified By Organization Details Last Modified Time Details Appointments None record ed. Lab None record ed. Referral None record ed. Procedures None record ed. Surgeries None record ed. Imaging None record ed. Medication Orders None record ed. Patient TargetsNo targets recorded. Patient InstructionsNo instructions recorded. Reason for Referral None Reported. Procedures Surgical History Date Name Laterality Status Provider Name and Address Organization Details Recorded Time 4 OC-Direct observation Template completed [facility] 08/05/2024 17:13:50 4 [facility] Send Out Template DOT completed [employer] 08/05/2024 17:17:41 Imaging Results None recorded. Procedure Notes None recorded. Medical Equipment None Reported. Medications Name Sig Start Date Stop Date Status Note LastModified by Organization Details LastModified Time amoxicillin 500 mg capsule TAKE ONE CAPSULE EVERY 8 HOURS UNTIL FINISHED active Not Available Not Available No t Available prednisone 10 mg tablet TAKE 1 TABLET BY MOUTH EVERY DAY WITH FOOD active Not Available Not Available No t Available doxycycline hyclate 100 mg capsule TAKE 1 CAPSULE BY MOUTH TWICE A DAY WITH 8 OZ OF WATER. DO NOT LAY DOWN FOR 30 MINS AFTER active Not Available Not Available N ot Available hydrocodone 5 mg-acetamino phen 325 mg tablet TAKE 1 TABLET BY MOUTH EVERY 6 HOURS NEEDED FOR SEVERE PAIN FOR UP TO 5 DAYS active Not Available Not Available No t Available minocycline 100 mg capsule TAKE 1 CAPSULE BY MOUTH TWICE A DAY active Not Available Not Available No t Available prednisone 20 mg tablet TAKE 1 TABLET (20 MG) BY MOUTH IN THE MORNING FOR 5 DAYS. active Not Available Not Available Not Available prednisone 5 mg tablet PLEASE SEE ATTACHED FOR DETAILED DIRECTIONS active Not Available Not Available N ot Available doxycycline monohydrate 100 mg capsule TAKE 1 CAPSULE BY MOUTH TWICE A DAY active Not Available Not Available No t Available cephalexin 500 mg capsule TAKE 1 CAPSULE BY MOUTH 4 TIMES A DAY FOR 7 DAYS active Not Available Not Available N ot Available ferrous sulfate 325 mg (65 mg iron) tablet TAKE 1 TABLET BY MOUTH TWICE A DAY active Not Available Not Available No t Available ibuprofen 600 mg tablet TAKE ONE TABLET EVERY 6 HOURS NEEDED MILD PAIN active Not Available Not Available No t Available ferrous sulfate 325 mg (65 mg iron) tablet,delay ed release TAKE 1 TABLET BY MOUTH WITH BREAKFAST DO NOT CRUSH, CHEW OR SPLIT active Not Available Not Available N ot Available vitamin B complex capsule TAKE 1 CAPSULE BY MOUTH EVERY DAY IN THE MORNING active Not Available Not Available No t Available oxycodone 5 mg tablet TAKE ONE TABLET EVERY 6 HOURS NEEDED FOR SEVERE PAIN active Not Available Not Available Not Available Xarelto 15 mg tablet TAKE 1 TABLET BY MOUTH EVERY DAY WITH EVENING MEAL active Not Available Not Available No t Available Vitals None Recorded Social History None recorded. Functional Status None recorded. Mental Status None recorded. Family History Nothing Reported. Medical History No medical history recorded. Past Encounters Encounter ID Performer Location Encounter Start Date Encounter Closed Date Diagnosis/Indication Diagnosis SNOMED-CT Code Diagnosis ICD10 Code [id number] [place] [address] [id number] 08/05/2024 16:39:56 08/05/2024 17:37:50 History and physical examination, occupation [id number] Z02.1 Health Concerns Section Related Observation LastModified by Organization [employer] LastModified Time None Recorded Concern Status LastModified by Organization Details LastModified Time None Recorded Payers Encounter Date Sequence Insurance Name Policy Number Policy Rose Covered Member ID Rose Member ID Guarantor Name 08/05/2024 OC-ESCREEN Tremaine Peace OC-ESCREEN Tremaine Kobi
--- OUTSIDE RECORDS SUMMARY | 2024-11-04 15:59 | XMS_ITS | Data Portability ---
Author Organization [facility] [address] Address [address] [place] [address] Assessment No assessment recorded. Plan of Treatment [...] Time 4 OC-Direct observation Template completed [facility] 08/05/2024 17:13:50 4 [facility] Send Out Template DOT completed [facility] 08/05/2024 17:17:41 Imaging Results None recorded. Procedure [...] Diagnosis/Indication Diagnosis SNOMED-CT Code Diagnosis ICD10 Code [id number] [address] [address] [place] [address] 06/26/2022 08:28:31 06/26/2022 10:38:47 [id number] [place] [address] [address] [place] [address] 08/05/2024 16:39:56 08/05/2024 17:37:50 History and physical examination, occupation [id number] Z02.1 Health Concerns Section Related Observation LastModified by Organization [employer] LastModified Time None Recorded Concern Status LastModified by Organization Details LastModified Time None Recorded Advance Directives Directive None Recorded Payers Encounter Date Sequence Insurance Name Policy Number Policy Rose Covered Member ID Rose Member ID Guarantor Name 08/05/2024 OC-ESCREEN Tremaine Peace OC-ESCREEN Tremaine Peace
[2024-11-04 18:02] LABS: MANUAL DIFF FLAG NO
[2024-11-04 18:19] LABS: Basophils Percent Auto 0.5 % (0-2); Eosinophils Percent Auto 0.5 % (0-4); Hematocrit 36.9 % (42.0-52.0); Hemoglobin 12.2 g/dl (14.0-18.0); Imm Gran Abs Auto 0.01 X10*3/uL (0.00-0.03); Imm Gran Pct Auto 0.3 % (0.0-0.4); Lymphocytes Absolute Auto 1.1 X10*3/uL (1.2-4.9); Lymphocytes Percent Auto 28.6 % (20-40); Mean Corpuscular HGB Conc 33.1 g/dl (31.0-36.0); Mean Corpuscular Hemoglobin 34.7 pg (27.0-33.0); Mean Corpuscular Volume 104.8 fL (80.0-98.0); Mean Platelet Volume 11.3 fL (9.4-12.4); Monocytes Absolute Auto 0.2 X10*3/uL (0.1-1.2); Monocytes Percent Auto 6.2 % (2-11); Neutrophils Absolute Auto 2.5 x10*3/uL (2.0-8.3); Neutrophils Percent Auto 63.9 % (45-73); Platelet Count 119 X10*3/uL (160-400); Red Blood Count 3.52 X10*6/uL (4.60-5.80); Red Cell Distribution Width 13.7 % (11.0-16.0); White Blood Count 3.9 X10*3/uL (4.8-10.8)
[2024-11-04 18:29] LABS: Sodium 140 mmol/L (135-145)
[2024-11-04 18:30] LABS: Alanine Aminotransferase 35 U/L (0-40); Albumin Level 4.6 g/dL (3.5-5.0); Alkaline Phosphatase 81 U/L (39-117); Anion Gap 9 (12-20); Aspartate Amino Transferase 32 U/L (5-37); Bilirubin Total 1.5 mg/dL (0.0-1.0); Blood Urea Nitrogen 9 mg/dL (9-16); Calcium 9.4 mg/dL (8.4-10.2); Carbon Dioxide 29 mmol/L (22-29); Chloride 106 mmol/L (96-108); Estimated Glomerular Filt Rate > 60; Glucose Random 87 mg/dL (60-115); Potassium 3.7 mmol/L (3.3-5.1)
== END 2024-11-04 15:58 | disposition home or self-care (01) ==
LOC: HO.CHCLDS 15:57
PROVIDERS: Visit Provider Internal Medicine
DX: D59.5 Paroxysmal nocturnal hemoglobinuria [Marchiafava-Micheli] (principal)
CPT/HCPCS: 36415; 80053; 85025

== ENCOUNTER → 2024-12-02 15:04 | Outpatient (BNVA) | payer SELFPAY | PROVIDERS: PCP Internal Medicine; Visit Provider Physician Assistant Medical | DX: Z02.79 Encounter for issue of other medical certificate (principal) ==

== ENCOUNTER 2024-12-28 12:35 | Outpatient (REF) | payer MEDICAID, SELFPAY ==
--- OUTSIDE RECORDS SUMMARY | 2024-12-28 13:10 | XMS_ITS | Encounter Summary ---
Author Organization [employer] Address [address] [facility] 7t [place] [address] Care Team Providers Care Business Services Manager Name Role Phone Marlon Key MD Primary Care Provider [phone]- [phone] Encounter Details Date Type Department Care Team (Late st Contact Info) Description 09/16/2023 Orders Only [facility] CHC MED & PEDS [address] [place], [place] [phone] Marlon Key MD [address] [place] [address] Macrocytic anemia (Primary Dx) Social History Tobacco Use Types Packs/Day Years Used Date Smoking Tobacco: Never Smokeless Tobacco: Never Alcohol Use Standard Drinks/Week Comments Not Currently 0 (1 standard drink = 0.6 oz pur e alcohol) Depression Answer Date Recorded Patient Health Questionnaire-9 Score 0 07/15/2023 Housing Stability Answer Date Recorded What is your housing situation today? I have jf hutton 09/09/[address] you li ve. Do you have problems with any of the following? None of the above 09/09/2023 Food Insecurity Answer Date Recorded Within the past 12 months, y ou worried that your food would run out before you got money to buy more: Never True 09/09/2023 Within the past 12 months,th e food you bought just didn't last and you didn't have enough money to get more: Never True Transportation Answer Date Recorded In the past 12 months, has l ack of transportation kept you from medical appts, meetings, work or from getting things needed for daily living? No 09/09/2023 Utilities Answer Date Recorded In the past 12 months, has t he electric, gas, oil or water company threatened to shut off services in your home? No 09/09/2023 Depression Answer Date Recorded Patient Health Questionnaire-2 Score 0 07/15/2023 Sex and Gender Information Value Date Recorded Sex Assigned at Male 09/23/2022 10:29 AM EDT Legal Sex Male 10:29 AM EDT Gender Identity Male 09/23/2022 10:29 AM EDT Sexual Orientation Straight 09/23/2022 10 :29 AM EDT documented as of this encounter Plan of Treatment Upcoming Encounters Date Type Department Care Team (Late st Contact Info) Description 01/13/2025 3:00 PM EST Office Visit [facility] ADULT DENTAL [address] [place] [address] Tess Gerber documented as of this encounter Visit Diagnoses Diagnosis Macrocytic anemia- Primary documented in this encounter Additional Health Concerns Assessment Noted Time PHQ-9 Depression Total Score: 0 07/15/20 23 3:30 PM EDT documented as of this encounter Care Teams Business Services Manager Relationship Specialty Start Date End Date Marlon Key MD [address] [place] [address] PCP - General Internal Medicine 01/03/16 documented as of this encounter
--- OUTSIDE RECORDS SUMMARY | 2024-12-28 13:10 | XMS_ITS | Encounter Summary ---
Author Organization [employer] Address 75 [facility] 7t [place] [address] Care Team Providers Care Body And Fender Worker Name Role Phone Marlon Key MD Primary Care Provider [phone]- [phone] Reason for Visit * Reason Comments Med Refill Encounter Details Date Type Department Care Team ([facility] st Contact Info) Description 12/30/2023 Refill [facility] CHC MED & PEDS [address] [place], [place] [phone] Marlon Key MD [address] [place] [address] Ulcer of scrotum Social History Tobacco Use Types Packs/Day Years Used Date Smoking Tobacco: Never Passive Smoke Exposure: Never Smokeless Tobacco: Never Alcohol Use Standard [...] Description 01/13/2025 3:00 PM EST Office Visit [facility] ADULT DENTAL [address] [place] [address] Tess Gerber documented as of this encounter Visit Diagnoses Diagnosis Ulcer of scrotum Other specified disorder of male genital organs documented in this encounter Additional Health Concerns Assessment Noted Time PHQ-9 Depression Total Score: 0 07/15/20 23 3:30 PM EDT documented as of this encounter Care Teams Body And Fender Worker Relationship Specialty Start Date End Date Marlon Key MD [address] [place] [address] PCP - General Internal Medicine 01/03/16 documented as of this encounter
--- OUTSIDE RECORDS SUMMARY | 2024-12-28 13:10 | XMS_ITS | Encounter Summary ---
Author Organization [employer] Address [address] [facility] 7 [place] [address] Care Team Providers Care Clay Dry Press Mixer Operator Name Role Phone Marlon Key MD Primary Care Provider Reason for Visit * Reason Onset Date Comments FYI 08/20/2023 Encounter Details Date Type Department Care Team (Late st Contact Info) Description 08/20/[address] [facility] CHC MED & PEDS [address] [place] [address] Marlon Key MD [address] [place] [address] FYI Social History Tobacco Use Types Packs/Day Years Used Date Smoking Tobacco: Never Smokeless Tobacco: Never Alcohol Use Standard Drinks/Week Comments Not Currently 0 (1 standard drink = 0.6 oz pur e alcohol) Depression Answer Date Recorded Patient Health Questionnaire-9 Score 0 07/15/2023 Depression Answer Date Recorded Patient Health Questionnaire-2 Score 0 07/15/2023 Sex and Gender Information Value Date Recorded Sex Assigned at Male 09/23/2022 10:29 AM EDT Legal Sex Male 10:29 AM EDT Gender Identity Male 09/23/2022 10:29 AM EDT Sexual Orientation Straight 09/23/2022 10 :29 AM EDT documented as of this encounter Miscellaneous Notes * Telephone Encounter - Kaley Barrera RN - 08/20/2023 6:48 PM EDT Will forward to PCP and Dx team to inform of below. * Telephone Encounter - Heidi Barrera - 08/20/2023 4:42 PM EDT Tc from [facility] advising PCP they do not have anyone for CT scan of abdomin pelvis w/ and w/o contrast until 09/02. documented in this encounter Plan of Treatment Upcoming Encounters Date Type Department Care Team ([facility] st Contact Info) Description 01/13/2025 3:00 PM EST Office Visit [facility] ADULT DENTAL [address] [place] [address] Tess Gerber documented as of this encounter Visit Diagnoses Not on filedocumented in this encounter Additional Health Concerns Assessment Noted Time PHQ-9 Depression Total Score: 0 07/15/20 23 3:30 PM EDT documented as of this encounter Care Teams Clay Dry Press Mixer Operator Relationship Specialty Start Date End Date Marlon Key MD [address] [place] [address] PCP - General Internal Medicine 01/03/16 documented as of this encounter
--- OUTSIDE RECORDS SUMMARY | 2024-12-28 13:10 | XMS_ITS | Encounter Summary ---
Author Organization [employer] Address 75 [facility] 7t [place] [address] Care Team Providers Care Lieutenant Colonel Name Role Phone Marlon Key MD Primary Care Provider [phone]- [phone] Encounter Details Date Type Department Care Team (Late st Contact Info) Description 09/26/2023 Abstract [facility] CHC ADULT DENTAL [address] [place] [address] Sandhya Huddleston [address] [place] [address] Social History Tobacco Use Types Packs/Day Years [...] [facility] [address] [place] [address] Tess Gerber documented as of this encounter Visit Diagnoses Not on filedocumented in this encounter Additional Health Concerns Assessment Noted Time PHQ-9 Depression Total Score: 0 07/15/20 23 3:30 PM EDT documented as of this encounter Care Teams Lieutenant Colonel Relationship Specialty Start Date End Date Marlon Key MD [address] [place] [address] PCP - General Internal Medicine 01/03/16 documented as of this encounter
--- OUTSIDE RECORDS SUMMARY | 2024-12-28 13:10 | XMS_ITS | Referral Summary ---
Author Organization [facility] [facility] Address [address] [place] [address] Care Team Providers Care Air Pollution Specialist Name Role Phone Marlon Key Primary Care Provider [phone] Medications doxycycline monohydrate (MONODOX) 100 mg capsuleIndicatio ns:Hidradenitis suppurativa TAKE 1 CAPSULE BY MOUTH TWICE A DAY 60 capsule 12/04/2023 Active Active Problems No known active problems Social History Tobacco Use Types Packs/Day Years Used Date Smoking Tobacco: Never Assessed Sex and Gender Information Value Date Recorded Sex Assigned at Male 10/27/2023 2:04 PM EST Legal Sex Male 2:02 PM EST Gender Identity Not on file Sexual Orientation Not on file Plan of Treatment Not on file [place] [place] [address] Care Teams Air Pollution Specialist Relationship Specialty Start Date End Date Marlon Key [address] [place] [address] PCP - General Internal Medicine 10/27/23
--- OUTSIDE RECORDS SUMMARY | 2024-12-28 13:10 | XMS_ITS | Encounter Summary ---
Author Organization [facility] Address [address] [place] [address] 7 h Floor [place] [phone] Care Team Providers Care Hockey Player Name Role Phone Marlon Key MD Primary Care Provider Encounter Details Date Type Department Care Team (Latest Contact Info) Description 09/11/2021 Abstract [facility] CONVERSIONS Dental, Provider, DDS Social History Tobacco Use Types Packs/Day Years [...] 3:00 PM EST Office Visit [facility] ADULT DENTAL [address] [place] [address] Tess Gerber documented as of this encounter Visit Diagnoses Not on filedocumented in this encounter Care Teams Hockey Player Relationship Specialty Start Date End Date Marlon Key MD [address] [place] [address] PCP - General Internal Medicine 01/03/16 documented as of this encounter
--- OUTSIDE RECORDS SUMMARY | 2024-12-28 13:10 | XMS_ITS | Encounter Summary ---
Author Organization [employer] Address [address] [facility] 7t [place] [address] Care Team Providers Care Optical Dispenser Name Role Phone Marlon Key MD Primary Care Provider [phone] Encounter Details Date Type Department Care Team (Late st Contact Info) Description 10/03/2023 Orders Only [facility] CHC MED & PEDS [address] [place], [place] [phone] Marlon Key MD [address] [place], [place] [phone] Macrocytic anemia (Primary Dx) Social History Tobacco [...] Description 01/13/2025 3:00 PM EST Office Visit [facility] ADULT DENTAL [address] [place] [address] Tess Gerber documented as of this encounter Visit Diagnoses Diagnosis Macrocytic anemia- Primary documented in this encounter Additional Health Concerns Assessment Noted Time PHQ-9 Depression Total Score: 0 07/15/20 23 3:30 PM EDT documented as of this encounter Care Teams Optical Dispenser Relationship Specialty Start Date End Date Marlon Key MD [address] [place] [address] PCP - General Internal Medicine 01/03/16 documented as of this encounter
--- OUTSIDE RECORDS SUMMARY | 2024-12-28 13:10 | XMS_ITS | Clinical Summary ---
Author Organization [employer] [facility] Address [address] [facility] 7t [place] [address] Care Team Providers Care Director Outpatient Services Name Role Phone Marlon Key MD Primary Care Provider [phone] Allergies No known active allergies Medications B Complex Vitamins (Vitamin B Complex) capsule TAKE 1 CAPSULE BY MOUTH EVERY MORNING 90 each 1 10/19/2024 Active Active Problems Problem Noted Date Diagnosed Date Abscess 11/13/2024 Assessment & Plan (11/13/2024 2:32 PM EST): I+ D performed without complication, wound dressed, may apply warm compresses After care reviewed pt aware to seek care for increased pain redness or reoccurance Cellulitis of chest wall 11/13/2024 Assessment & Plan (11/13/2024 2:32 PM EST): See below Due to size and potential immunocompromise, Rx of doxycycline PNH (paroxysmal nocturnal hemoglobinuria) 2023 Encounters Date Type Department Care Team Description 11/12/2024 3:20 PM EST Office Visit [facility] [address] [place], [place] [phone] Tennille Griffin NP Abscess (Primary Dx); Cellulitis of chest wall 11/12/2024 Travel 10/19/2024 Refill [facility] CHC MED & PEDS [address] [place], [place] [phone] Marlon Key MD from Last 3 Months Immunizations Name Administration Dates Next Due DTaP, 5 pertussis antigens 09/20/1996,,1992,09/25,1992 Hep B, adult 02/27/1993,1992,1992 HiB, unspecified 08/20/1993,1992 Hib (PRP-T) 1992 IPV 09/20/1996, 4,1992,07/19 Influenza injectable quadriv alent IIV4 with preservative 08/05/2019 Influenza injectable quadriv alent preservative free 01/03/2016 Influenza, seasonal, injecta ble, preservative free 09/02/2024 MMR 09/20/1996,08/20/1993 Meningococcal ACWY, unspecified 12/12/2006 Meningococcal Polysaccharide A,C,Y,W-135 TT Conjugate 11/03/2023 TD (adult), 2 Lf tetanus tox oid, preservative free, adsorbed 06/28/2003,03/28/2003 Tdap 04/14/2024,02/25/2013 Family History Medical History Relation Name Comments Diabetes Mother Relation Name Status Comments Mother Social History Tobacco Use Types Packs/Day Years Used Date Smoking Tobacco: Never Passive Smoke Exposure: Never Smokeless Tobacco: Never Tobacco Cessation:Counseling Given: Not Answered Alcohol Use Standard Drinks/Week Comments Not Currently 0 (1 standard drink = 0.6 oz pur e alcohol) Depression Answer Date Recorded Patient Health Questionnaire-9 Score 2 04/14/2024 Patient Health Questionnaire-9 Score 2 04/14/2024 Last PHQ-9: Questionnaire Data Not on file 0 04/14/2024 Housing Stability Answer Date Recorded What is your housing situation today? I have jfrichard hutton 09/09/[address] you [...] Answer Date Recorded Patient Health Questionnaire-2 Score 2 04/14/2024 Sex and Gender Information Value Date Recorded Sex Assigned at Male 09/23/2022 10:29 AM EDT Legal Sex Male 10:29 AM EDT Gender Identity Male 09/23/2022 10:29 AM EDT Sexual Orientation Straight 09/23/2022 10 :29 AM EDT Last Filed Vital Signs Vital Sign Reading Time Taken Comments Blood Pressure 140/88 11/12/2024 3:19 PM EST Pulse 87 11/12/2024 3:19 PM EST Temperature 36.6 ??C (97.9 ??F) 11/12/2024 3:19 PM ES T Respiratory Rate 16 11/12/2024 3:19 PM EST Oxygen Saturation 98% 04/14/2024 10:02 AM EDT Inhaled Oxygen Concentration - - Weight 81 kg (178 lb 9.6 oz) 11/12/2024 3:19 PM EST Height 170.2 cm (5' 7 ) 11/12/2024 3:19 PM EST Body Mass Index 27.97 11/12/2024 3:19 PM EST Plan of Treatment Upcoming Encounters Date Type Department Care Team (Late st Contact Info) Description 01/13/2025 3:00 PM EST Office Visit [facility] ADULT DENTAL [address] [place] [address] Tess Gerber Health Maintenance Due Date Last Done Comments Alcohol/Substance Use Screening 2004 Family Planning (PISQ) 2007 COVID-19 Vaccine ( season) 2024 05/09/2021, 04/11/2021 Dental Oral Exam 10/08/2024 04/06/2024, , 09/11/2021 Dental Prophylaxis 10/08/2024 04/06/2024, 1 , 09/11/2021 SDOH Screening 04/06/2025 04/06/2024 Dental X-Ray: Bitewings 04/07/2025 04/06/20 24, 09/09/2023, 09/11/2021 Depression Screening 04/14/2025 04/14/2024, 04/14/20 24 Tobacco Screening 11/13/2025 11/13/2024 Dental X-Ray: Full Mouth 04/30/2027 024, 09/11/2021, 06/11/2021 DTaP/Tdap/Td Vaccines (9 - Td or Tdap) 04/14/2034 04/14/2024, 02/25/2013, 02/10/2008, Additional history exists Zoster Vaccines (1 of 2) 2042 RSV Patients and Patients Aged 60 years or older (1 - 1-dose 75+ series) 2067 Hepatitis B Vaccines Completed 02/27/1993, 1992, 1992 HIB Vaccines Completed 08/20/1993, 11/25, 1992 IPV Vaccines Completed 09/20/1996, 11/25, 1992, Additional history exists HIV Screening Completed 04/14/2024 Hepatitis C Screening Completed 04/14/2024 Influenza Vaccine Completed 09/02/2024, , 01/03/2016, Additional history exists Meningococcal Vaccine Aged Out 10/02/2024 , 11/03/2023, 12/12/2006, Additional history exists No longer eligible based on patient's age to complete this topic HPV Vaccines Aged Out No longer eligi ble based on patient's age to complete this topic Hepatitis A Vaccines Aged Out No long er eligible based on patient's age to complete this topic Pneumococcal Vaccine: Pediatrics (0 to 5 Years) and At-Risk Patients (6 to 49) Years) Aged Out No longer eligible based on patient's age to complete this topic RSV under 20 months Aged Out No longe r eligible based on patient's age to complete this topic Rotavirus Vaccines Aged Out No longer eligible based on patient's age to complete this topic Procedures Procedure Name Priority Date/Time Associated Diagnosis Comments FL INCISION & DRAINAGE ABSCESS SIMPLE/SINGLE Routine 11/12/2024 4:29 PM EST Abscess PANORAMIC RADIOGRAPHIC IMAGE Routine 04/29/2024 3:30 PM EDT HEPATITIS C AB W/REFL TO HCV RNA, QN, PCR Routine 04/14/2024 10:43 AM EDT Annual physical exam PNH (paroxysmal nocturnal hemoglobinuria) ([facility]/HCC) HIV 1/2 ANTIGEN/ANTIBODY, FOURTH GENERATION W/RFL Routine 04/14/2024 10:43 AM EDT PNH (paroxysmal nocturnal hemoglobinuria) (CMS/HCC) Full PROPHYLAXIS - ADULT Routine 04/06/2024 9:00 AM EDT BITEWINGS - 4 RADIOGRAPHIC IMAGES Routine 04/06/2024 9:00 AM EDT PERIODIC ORAL EVALUATION - ESTABLISHED PATIENT Routine 04/06/2024 9:00 AM EDT from Last 3 Months or Most Recently Relevant to Health Maintenance Results * FL INCISION & DRAINAGE ABSCESS SIMPLE/SINGLE (11/12/2024 4:29 PM EST) Narrative Tennille Griffin NP - 11/12/2024 4:29 PM EST Tennille Griffin NP ? 11/13/2024 ??2:33 PM Incision and Drainage Date/Time: 11/12/2024 4:29 PM Performed by: Tennille Griffin NP Authorized by: Tennille Griffin NP ?? Consent: ??Consent obtained: ??Written ??Consent given by: ??Patient ??Risks, benefits, and alternatives were discussed: yes ?Risks discussed: ??Incomplete drainage, infection and pain ??Alternatives discussed: ??No treatment, alternative treatment, observation and referral [place] protocol: ??Procedure explained and questions answered to patient or proxy's satisfaction: yes ?Relevant documents present and verified: yes ?Site/side marked: no ?? Location: ??Type: ??Abscess ??Location: ??Trunk ??Trunk location: ??Chest Pre-procedure details: ??Skin preparation: ??Povidone-iodine Sedation: ??Sedation type: ??None Anesthesia: ??Anesthesia method: ??Local infiltration ??Local anesthetic: ??Lidocaine 1% w/o epi Procedure type: ??Complexity: ??Simple Procedure details: ??Ultrasound guidance: no ?Needle aspiration: no ?Incision types: ??Single straight ??Incision depth: ??Subcutaneous ??Drainage: ??Bloody, purulent and serosanguinous ??Drainage amount: ??Moderate ??Wound treatment: ??Wound left open ??Packing materials: ??None Post-procedure details: ??Procedure completion: ??Tolerated well, no immediate complications us Tennille Griffin NP IN CLINIC/BEDSIDE ORDERABLES Fin al Result * Hepatitis C Antibody with Reflex to HCV, RNA, Quantitative, Real-Time PCR (04/14/2024 10:43 AM EDT) Hepatitis C Antibody Nonreactive Nonreactive [facility] Comment:Antibodies to HCV no t detected; does not exclude early acuteHCV infection. Blood Venous blood specimen / Unknown 04/14/2024 10:43 AM EDT 04/14/2024 2:40 PM EDT us Marlon Key MD LAB BLOOD ORDERABLES Final Result [facility] [address] [place] [phone] * HIV-1/2 Antigen and Antibodies, Fourth Generation, with Reflexes (04/14/2024 10:43 AM EDT) HIV AB/AG Nonreactive Nonreactive [facility] Comment:HIV-1 p24 Ag and/or HIV-1/HIV-2 Ab not detected.A test result that is nonreactive does not exclude thepossibility of exposure to or infection with HIV-1 and/orHIV-2. Nonreactive results in this assay for individualswith prior exposure to HIV-1 and/or HIV-2 may be due toantigen and antibody levels that are below the limit ofdetection of this assay.The [employer] HIV Ag/Ab Combo assay result andsupplemental assay results should be interpreted inconjunction with the patient's clinical presentation,history and other laboratory results. If the results areinconsistent with clinical evidence, additional testing issuggested to confirm the result. Blood Venous blood specimen / Unknown 04/14/2024 10:43 AM EDT 04/14/2024 2:40 PM EDT us Marlon Key MD LAB BLOOD ORDERABLES Final Result [facility] [address] [place] [address] [phone] from Last 3 Months or Most Recently Relevant to Health Maintenance Insurance [facility] C3 DENTAL-[facility] MEDICAID STAND ADULT Care Teams Director Outpatient Services Relationship Specialty Start Date End Date Marlon Key MD [address] [place] [phone] PCP - General Internal Medicine 01/03/16
--- OUTSIDE RECORDS SUMMARY | 2024-12-28 13:10 | XMS_ITS | Encounter Summary ---
Author Organization [employer] Address [address] [facility] 7t [place] [address] Care Team Providers Care Bridge Maintenance Worker Name Role Phone Marlon Key MD Primary Care Provider [phone]- [phone] Encounter Details Date Type Department Care Team (Late st Contact Info) Description 11/18/2023 Orders Only [facility] CHC MED & PEDS [address] [place], [place] [phone] Marlon Key MD [address] [place] [address] Subacute dermatitis (Primary Dx) Social History Tobacco Use Types [...] Upcoming Encounters Date Type Department Care Team ([facility] st Contact Info) Description 01/13/2025 3:00 PM EST Office Visit [facility] ADULT DENTAL [address] [place] [address] Tess Gerber documented as of this encounter Visit Diagnoses Diagnosis Subacute dermatitis- Primary Contact dermatitis and other eczema, due to unspecified cause documented in this encounter Additional Health Concerns Assessment Noted Time PHQ-9 Depression Total Score: 0 07/15/20 23 3:30 PM EDT documented as of this encounter Care Teams Bridge Maintenance Worker Relationship Specialty Start Date End Date Marlon Key MD [address] [place] [address] PCP - General Internal Medicine 01/03/16 documented as of this encounter
--- OUTSIDE RECORDS SUMMARY | 2024-12-28 13:10 | XMS_ITS | Clinical Summary ---
Author Organization [facility] Address [address] [place] [address] Care Team Providers Care Creative Writing English Professor Name Role Phone Shahid Barrettronalselvin Braswell Primary Care Provider [phone] Medications doxycycline monohydrate (MONODOX) 100 mg capsuleIndicatio [...] Orientation Not on file Plan of Treatment Health Maintenance Due Date Last Done Comments HIV Screening 1992 Hepatitis C Screening 1992 Varicella Vaccines (1 of 2 - 13+ 2-dose series) 2005 DTaP,Tdap,and Td Vaccines (7 - Td or Tdap) 02/25/2023 02/25/2013, 06/28/2003, 03/28/2003, Additional history exists COVID-19 Vaccine ( season) 2024 05/09/2021, 04/11/2021 Influenza Vaccine (#1) 2024 08/05/2019, 2015 Alcohol/Substance Use Screening 11/24/2024 Depression Screening and Follow-Up 11/24/2024 Social Drivers of Health Annual Screening 11/24/2024 RSV Vaccine (60+ years old and patients) (1 - 1-dose 75+ series) 2067 Hepatitis B Vaccines Completed 02/27/1993, 1992, 1992 Pneumococcal Vaccine: Pediatric (0-5 Years) and At-Risk Patients (6-64 Years) Aged Out No longer eligible based on patient's age to complete this topic Insurance [facility] Care Teams Creative Writing English Professor Relationship Specialty Start Date End Date Marlon Key [address] [place] [phone] PCP - General Internal Medicine 10/27/23
--- OUTSIDE RECORDS SUMMARY | 2024-12-28 13:10 | XMS_ITS | Encounter Summary ---
Author Organization [employer] Address [address] [facility] 7t [place] [address] Care Team Providers Care Hand Shoes Sewer Name Role Phone Marlon Key MD Primary Care Provider [phone]- [phone] Encounter Details Date Type Department Care Team (Late st Contact Info) Description 10/31/2023 Orders Only [facility] CHC MED & PEDS [address] [place], [place] [phone] Marlon Key MD [address] [place] [address] Social History Tobacco Use Types Packs/Day Years [...] Description 01/13/2025 3:00 PM EST Office Visit [facility] ADULT DENTAL [address] [place] [address] Tess Gerber documented as of this encounter Visit Diagnoses Not on filedocumented in this encounter Additional Health Concerns Assessment Noted Time PHQ-9 Depression Total Score: 0 07/15/20 23 3:30 PM EDT documented as of this encounter Care Teams Hand Shoes Sewer Relationship Specialty Start Date End Date Marlon Key MD [address] [place] [address] PCP - General Internal Medicine 01/03/16 documented as of this encounter
--- OUTSIDE RECORDS SUMMARY | 2024-12-28 13:10 | XMS_ITS | Data Portability ---
Author Organization [employer] [address] Address [address] [place] [address] Assessment No assessment recorded. Plan of Treatment [...] Time 4 OC-Direct observation Template completed [employer] 08/05/2024 17:13:50 4 OC-UDS Send Out Template DOT completed [employer] 08/05/2024 17:17:41 Imaging Results None recorded. Procedure [...] Diagnosis/Indication Diagnosis SNOMED-CT Code Diagnosis ICD10 Code Diagnosis Note [id number] [address] [facility] [address] [place] [address] 06/26/2022 08:28:31 06/26/2022 10:38:47 [id number] LUIS WOLFF [place] [address] [facility] [address] [place] [address] 08/05/2024 16:39:56 08/05/2024 17:37:50 History and physical examination, occupation [id number] Z02.1 Health Concerns Section Related Observation LastModified by Organization Detai ls LastModified Time None Recorded Concern Status LastModified by Organization Details LastModified Time None Recorded Advance Directives Directive None Recorded Payers Encounter Date Sequence Insurance Name Policy Number Policy Rose Covered Member ID Rose Member ID Guarantor Name 08/05/2024 OC-ESCREEN Tremaine Peace OC-ESCREEN Tremaine Peace
[2024-12-28 14:14] LABS: MANUAL DIFF FLAG NO
[2024-12-28 14:22] LABS: Basophils Percent Auto 0.7 % (0-2); Eosinophils Percent Auto 0.7 % (0-4); Hematocrit 36.5 % (42.0-52.0); Hemoglobin 12.3 g/dl (14.0-18.0); Imm Gran Abs Auto 0.01 X10*3/uL (0.00-0.03); Imm Gran Pct Auto 0.2 % (0.0-0.4); Lymphocytes Percent Auto 21.7 % (20-40); Mean Corpuscular HGB Conc 33.7 g/dl (31.0-36.0); Mean Corpuscular Hemoglobin 35.2 pg (27.0-33.0); Mean Corpuscular Volume 104.6 fL (80.0-98.0); Mean Platelet Volume 11.4 fL (9.4-12.4); Monocytes Absolute Auto 0.4 X10*3/uL (0.1-1.2); Monocytes Percent Auto 8.9 % (2-11); Neutrophils Absolute Auto 3.1 x10*3/uL (2.0-8.3); Neutrophils Percent Auto 67.8 % (45-73); Platelet Count 120 X10*3/uL (160-400); Red Blood Count 3.49 X10*6/uL (4.60-5.80); Red Cell Distribution Width 14.2 % (11.0-16.0); White Blood Count 4.6 X10*3/uL (4.8-10.8)
[2024-12-28 14:40] LABS: Alanine Aminotransferase 37 U/L (0-40); Albumin Level 4.4 g/dL (3.5-5.0); Alkaline Phosphatase 87 U/L (39-117); Anion Gap 14 (12-20); Aspartate Amino Transferase 30 U/L (5-37); Bilirubin Total 1.5 mg/dL (0.0-1.0); Blood Urea Nitrogen 12 mg/dL (9-16); Calcium 8.6 mg/dL (8.4-10.2); Carbon Dioxide 27 mmol/L (22-29); Chloride 108 mmol/L (96-108); Estimated Glomerular Filt Rate > 60; Glucose Random 71 mg/dL (60-115); Potassium 3.9 mmol/L (3.3-5.1); Sodium 145 mmol/L (135-145); Total Protein 7.1 g/dL (6.5-8.0)
== END 2024-12-28 12:36 | disposition home or self-care (01) ==
LOC: HO.CHCLDS 12:35
PROVIDERS: Visit Provider Internal Medicine
DX: D59.5 Paroxysmal nocturnal hemoglobinuria [Marchiafava-Micheli] (principal)
CPT/HCPCS: 36415; 80053; 85025

== ENCOUNTER 2024-12-30 11:13 | Outpatient (REF) | payer MEDICAID, SELFPAY ==
--- OUTSIDE RECORDS SUMMARY | 2024-12-30 11:20 | XMS_ITS | Encounter Summary ---
Author Organization [employer] Address 75 [facility] 7t [place] [address] Care Team Providers Care Nonfarm Animal Caretaker Name Role Phone Mralon Key MD Primary Care Provider +1- [phone] Encounter Details Date Type Department Care Team (Late st Contact Info) Description 09/16/2023 Orders Only [facility] CHC MED & PEDS [address] [place], [place] [phone] Marlon Key MD [address] [place] [address] Macrocytic anemia (Primary Dx) Social History Tobacco [...] Description 01/13/2025 3:00 PM EST Office Visit [facility] ADULT DENTAL [address] [place] [address] Tess Gerber documented as of this encounter Visit Diagnoses Diagnosis Macrocytic anemia- Primary documented in this encounter Additional Health Concerns Assessment Noted Time PHQ-9 Depression Total Score: 0 07/15/20 23 3:30 PM EDT documented as of this encounter Care Teams Nonfarm Animal Caretaker Relationship Specialty Start Date End Date Marlon Key MD [address] [place] [address] PCP - General Internal Medicine 01/03/16 documented as of this encounter
--- OUTSIDE RECORDS SUMMARY | 2024-12-30 11:20 | XMS_ITS | Encounter Summary ---
Author Organization [employer] Address [address] [facility] 7t [place] [address] Care Team Providers Care Application Assistant Name Role Phone Marlon Key MD Primary Care Provider +1- [phone] Encounter Details Date Type Department Care Team (Late st Contact Info) Description 10/03/2023 Orders Only [facility] CHC MED & PEDS [address] [place], [place] [phone] Marlon Key MD [address] [place], [place] [phone] Macrocytic anemia (Primary Dx) Social History Tobacco [...] 3:00 PM EST Office Visit [facility] ADULT DENTAL [address] [place] [address] Tess Gerber documented as of this encounter Visit Diagnoses Diagnosis Macrocytic anemia- Primary documented in this encounter Additional Health Concerns Assessment Noted Time PHQ-9 Depression Total Score: 0 07/15/20 23 3:30 PM EDT documented as of this encounter Care Teams Application Assistant Relationship Specialty Start Date End Date Marlon Key MD [address] [place] [address] PCP - General Internal Medicine 01/03/16 documented as of this encounter
--- OUTSIDE RECORDS SUMMARY | 2024-12-30 11:20 | XMS_ITS | Encounter Summary ---
Author Organization [employer] Address 75 [facility] 7 [place] [address] Care Team Providers Care Sand Mill Operator Core Sand Name Role Phone Marlon Key MD Primary Care Provider Reason for Visit * Reason Onset Date Comments FYI 08/20/2023 Encounter Details Date Type Department Care Team (Late st Contact Info) Description 08/20/2023 Telephone [facility] CHC MED & PEDS [address] [place] [address] Marlon Key MD [address] [place] [address] FYI Social History Tobacco Use Types Packs/Day [...] Upcoming Encounters Date Type Department Care Team ([facility] st Contact Info) Description 01/13/2025 3:00 PM EST Office Visit [facility] ADULT DENTAL [address] [place] [address] Tess Gerber documented as of this encounter Visit Diagnoses Not on filedocumented in this encounter Additional Health Concerns Assessment Noted Time PHQ-9 Depression Total Score: 0 07/15/20 23 3:30 PM EDT documented as of this encounter Care Teams Sand Mill Operator Core Sand Relationship Specialty Start Date End Date Marlon Key MD [address] [place] [address] PCP - General Internal Medicine 01/03/16 documented as of this encounter
--- OUTSIDE RECORDS SUMMARY | 2024-12-30 11:20 | XMS_ITS | Clinical Summary ---
Author Organization [facility] [facility] Address 75 [facility] 7t [place] [address] Care Team Providers Care Filler Shredding Machine Loader Name Role Phone Marlon Key MD Primary Care Provider Allergies No known active allergies Medications B [...] Description 11/12/2024 3:20 PM EST Office Visit [facility] [address] [place], [place] [phone] Tennille Griffin NP Abscess (Primary Dx); Cellulitis of chest wall 11/12/2024 Travel 10/19/2024 Refill [facility] CHC MED & PEDS [address] [place], [place] [phone] Marlon Key MD from Last 3 Months [...] Description 01/13/2025 3:00 PM EST Office Visit [facility] ADULT DENTAL [address] [place] [address] Tess Gerber Health Maintenance Due Date Last [...] Procedure Name Priority Date/Time Associated Diagnosis Comments ME INCISION & DRAINAGE ABSCESS SIMPLE/SINGLE Routine 11/12/2024 4:29 PM EST Abscess PANORAMIC RADIOGRAPHIC IMAGE Routine 04/29/2024 3:30 PM EDT HEPATITIS C AB W/REFL TO HCV RNA, QN, PCR Routine 04/14/2024 10:43 AM EDT Annual physical exam 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) HIV 1/2 ANTIGEN/ANTIBODY, FOURTH GENERATION W/RFL Routine 04/14/2024 10:43 AM EDT PNH (paroxysmal nocturnal hemoglobinuria) (CMS/HCC) Full PROPHYLAXIS - ADULT Routine 04/06/2024 9:00 AM EDT BITEWINGS - 4 RADIOGRAPHIC IMAGES Routine 04/06/2024 9:00 AM EDT PERIODIC ORAL EVALUATION - ESTABLISHED PATIENT Routine 04/06/2024 9:00 AM EDT from Last 3 Months or Most Recently Relevant to Health Maintenance Results * ME INCISION & DRAINAGE ABSCESS SIMPLE/SINGLE (11/12/2024 4:29 [...] ??No treatment, alternative treatment, observation and referral [place] protocol: ??Procedure explained and questions answered to [...] AM EDT) Hepatitis C Antibody Nonreactive Nonreactive [facility] Comment:Antibodies to HCV no t detected; does not exclude early acuteHCV infection. Blood Venous blood specimen / Unknown 04/14/2024 10:43 AM EDT 04/14/2024 2:40 PM EDT us Marlon Key MD LAB BLOOD ORDERABLES Final Result [facility] [address] [place] [phone] * HIV-1/2 Antigen and Antibodies, Fourth Generation, with Reflexes (04/14/2024 10:43 AM EDT) HIV AB/AG Nonreactive Nonreactive [facility] Comment:HIV-1 p24 Ag and/or HIV-1/HIV-2 Ab not detected.A test result that is nonreactive does not exclude thepossibility of exposure to or infection with HIV-1 and/orHIV-2. Nonreactive results in this assay for individualswith prior exposure to HIV-1 and/or HIV-2 may be due toantigen and antibody levels that are below the limit ofdetection of this assay.The [employer] HIV Ag/Ab Combo assay result andsupplemental assay results should be interpreted inconjunction with the patient's clinical presentation,history and other laboratory results. If the results areinconsistent with clinical evidence, additional testing issuggested to confirm the result. Blood Venous blood specimen / Unknown 04/14/2024 10:43 AM EDT 04/14/2024 2:40 PM EDT us Marlon Key MD LAB BLOOD ORDERABLES Final Result [facility] [address] [place] [address] [phone] from Last 3 Months or Most Recently Relevant to Health Maintenance Insurance [facility] C3 DENTAL-[facility] MEDICAID STAND ADULT Care Teams Filler Shredding Machine Loader Relationship Specialty Start Date End Date Marlon Key MD [address] [place] [address] PCP - General Internal Medicine 01/03/16
--- OUTSIDE RECORDS SUMMARY | 2024-12-30 11:20 | XMS_ITS | Encounter Summary ---
Author Organization [employer] Address 75 [facility] 7t [place] [address] Care Team Providers Care Rn Icu Name Role Phone Marlon Key MD Primary Care Provider +1- [phone] Encounter Details Date Type Department Care Team (Late st Contact Info) Description 09/26/2023 Abstract [facility] CHC ADULT DENTAL [address] [place] [address] Sandhya Huddleston [address] [place] [address] Social History Tobacco Use Types Packs/Day Years [...] Description 01/13/2025 3:00 PM EST Office Visit [facility] ADULT DENTAL [address] [place] [address] Tess Gerber documented as of this encounter Visit Diagnoses Not on filedocumented in this encounter Additional Health Concerns Assessment Noted Time PHQ-9 Depression Total Score: 0 07/15/20 23 3:30 PM EDT documented as of this encounter Care Teams Rn Icu Relationship Specialty Start Date End Date Marlon Key MD [address] [place] [address] PCP - General Internal Medicine 01/03/16 documented as of this encounter
--- OUTSIDE RECORDS SUMMARY | 2024-12-30 11:20 | XMS_ITS | Encounter Summary ---
Author Organization [facility] Address [address] [place] [address] 7 h Floor [place] [phone] Care Team Providers Care Certified Orthoptist Name Role Phone Marlon Key MD Primary Care Provider Encounter Details Date Type Department Care Team (Latest Contact Info) Description 09/11/2021 Abstract [facility] CONVERSIONS Dental, Provider, DDS Social History Tobacco [...] 3:00 PM EST Office Visit [facility] ADULT D[facility]AL [address] [place] [address] Tess Gerber documented as of this encounter Visit Diagnoses Not on filedocumented in this encounter Care Teams Certified Orthoptist Relationship Specialty Start Date End Date Marlon Key MD [address] [place] [address] PCP - General Internal Medicine 01/03/16 documented as of this encounter
--- OUTSIDE RECORDS SUMMARY | 2024-12-30 11:20 | XMS_ITS | Referral Summary ---
Author Organization [facility] Address [address] [place] [address] Care Team Providers Care Medical Technologist Blood Bank Name Role Phone Marlon Key Primary Care Provider [phone] Medications doxycycline monohydrate (MONODOX) 100 mg capsuleIndicatio [...] Plan of Treatment Not on [place] [address] [place] [address] Care Teams Medical Technologist Blood Bank Relationship Specialty Start Date End Date Marlon Key [address] [place] [address] PCP - General Internal Medicine 10/27/23
--- OUTSIDE RECORDS SUMMARY | 2024-12-30 11:20 | XMS_ITS | Encounter Summary ---
Author Organization [employer] Address 75 [facility] 7t [place] [address] Care Team Providers Care Promotor Group Ticket Sales Name Role Phone Marlon Key MD Primary Care Provider +1- [phone] Reason for Visit * Reason Comments Med Refill Encounter Details Date Type Department Care Team ([facility] st Contact Info) Description 12/30/2023 Refill [facility] CHC MED & PEDS [address] [place], [place] [phone] Marlon Key MD [address] [place] [address] Ulcer of scrotum Social History Tobacco Use [...] Description 01/13/2025 3:00 PM EST Office Visit [facility] ADULT DENTAL [address] [place] [address] Tess Gerber documented as of this encounter Visit Diagnoses Diagnosis Ulcer of scrotum Other specified disorder of male genital organs documented in this encounter Additional Health Concerns Assessment Noted Time PHQ-9 Depression Total Score: 0 07/15/20 23 3:30 PM EDT documented as of this encounter Care Teams Promotor Group Ticket Sales Relationship Specialty Start Date End Date Marlon Key MD [address] [place] [address] PCP - General Internal Medicine 01/03/16 documented as of this encounter
--- OUTSIDE RECORDS SUMMARY | 2024-12-30 11:20 | XMS_ITS | Clinical Summary ---
Author Organization [facility] Address [address] [place] [address] Care Team Providers Care Reinforcing Iron And Rebar Workers Name Role Phone Shahid Barrettronalselvin Braswell Primary Care Provider [phone] Medications doxycycline monohydrate (MONODOX) 100 mg capsuleIndicatio [...] patient's age to complete this topic Insurance [facility] Care Teams Reinforcing Iron And Rebar Workers Relationship Specialty Start Date End Date Marlon Key [address] [place] [id number] PCP - General Internal Medicine 10/27/23
--- OUTSIDE RECORDS SUMMARY | 2024-12-30 11:20 | XMS_ITS | Encounter Summary ---
Author Organization [employer] Address 75 [facility] 7t [place] [address] Care Team Providers Care Hydroelectric Plant Mechanical Engineer Name Role Phone Marlon Key MD Primary Care Provider [phone]- [phone] Encounter Details Date Type Department Care Team (Late st Contact Info) Description 11/18/2023 Orders Only [facility] CHC MED & PEDS [address] [place], [place] [phone] Marlon Key MD [address] [place] [address] Subacute dermatitis (Primary Dx) Social History Tobacco [...] Upcoming Encounters Date Type Department Care Team ([facility] st Contact Info) Description 01/13/2025 3:00 PM EST Office Visit [facility] ADULT D[facility] [address] [place] [address] Tess Gerber documented as of this encounter Visit Diagnoses Diagnosis Subacute dermatitis- Primary Contact dermatitis and other eczema, due to unspecified cause documented in this encounter Additional Health Concerns Assessment Noted Time PHQ-9 Depression Total Score: 0 07/15/20 23 3:30 PM EDT documented as of this encounter Care Teams Hydroelectric Plant Mechanical Engineer Relationship Specialty Start Date End Date Marlon Key MD [address] [place] [address] PCP - General Internal Medicine 01/03/16 documented as of this encounter
--- OUTSIDE RECORDS SUMMARY | 2024-12-30 11:20 | XMS_ITS | Data Portability ---
Author Organization [employer] [address] Address [address] [place] [address] Assessment No assessment recorded. Plan of Treatment [...] Time 4 OC-Direct observation Template completed [employer] 08/05/2024 17:13:50 4 OC-UDS Send Out Template DOT completed [employer] 08/05/2024 17:17:41 Imaging Results None recorded. Procedure [...] SNOMED-CT Code Diagnosis ICD10 Code Diagnosis Note [id number] [address] [facility] [address] [place] [address] 06/26/2022 08:28:31 06/26/2022 10:38:47 [id number] LUIS WOLFF [place] [address] [facility] [address] [place] [address] 08/05/2024 16:39:56 08/05/2024 17:37:50 History and physical examination, occupation [id number] Z02.1 Health Concerns Section Related Observation LastModified by Organization Detai ls LastModified Time None Recorded Concern Status LastModified by Organization Details LastModified Time None Recorded Advance Directives Directive None Recorded Payers Encounter Date Sequence Insurance Name Policy Number Policy Rose Covered Member ID Rose Member ID Guarantor Name 08/05/2024 OC-ESCREEN Tremaine Peace OC-ESCREEN Tremaine Peace
--- OUTSIDE RECORDS SUMMARY | 2024-12-30 11:20 | XMS_ITS | Encounter Summary ---
Author Organization [employer] Address 75 [facility] 7t [place] [address] Care Team Providers Care Timing Inspector Name Role Phone Marlon Key MD Primary Care Provider +1- [phone] Encounter Details Date Type Department Care Team (Late st Contact Info) Description 10/31/2023 Orders Only [facility] CHC MED & PEDS [address] [place], [place] [phone] Marlon Key MD [address] [place] [address] Social History Tobacco Use Types Packs/Day Years [...] Description 01/13/2025 3:00 PM EST Office Visit [facility] ADULT DENTAL [address] [place] [address] Tess Gerber documented as of this encounter Visit Diagnoses Not on filedocumented in this encounter Additional Health Concerns Assessment Noted Time PHQ-9 Depression Total Score: 0 07/15/20 23 3:30 PM EDT documented as of this encounter Care Teams Timing Inspector Relationship Specialty Start Date End Date Marlon Key MD [address] [place] [address] PCP - General Internal Medicine 01/03/16 documented as of this encounter
[2024-12-30 13:55] LABS: MANUAL DIFF FLAG NO
[2024-12-30 13:59] LABS: Basophils Percent Auto 0.7 % (0-2); Eosinophils Percent Auto 0.9 % (0-4); Hematocrit 36.8 % (42.0-52.0); Hemoglobin 12.7 g/dl (14.0-18.0); Imm Gran Abs Auto 0.03 X10*3/uL (0.00-0.03); Imm Gran Pct Auto 0.7 % (0.0-0.4); Lymphocytes Percent Auto 22.8 % (20-40); Mean Corpuscular HGB Conc 34.5 g/dl (31.0-36.0); Mean Corpuscular Hemoglobin 35.8 pg (27.0-33.0); Mean Corpuscular Volume 103.7 fL (80.0-98.0); Mean Platelet Volume 11.1 fL (9.4-12.4); Monocytes Absolute Auto 0.3 X10*3/uL (0.1-1.2); Monocytes Percent Auto 5.9 % (2-11); Neutrophils Absolute Auto 3.2 x10*3/uL (2.0-8.3); Platelet Count 122 X10*3/uL (160-400); Red Blood Count 3.55 X10*6/uL (4.60-5.80); White Blood Count 4.6 X10*3/uL (4.8-10.8)
[2024-12-30 14:08] LABS: Alanine Aminotransferase 36 U/L (0-40); Albumin Level 4.6 g/dL (3.5-5.0); Alkaline Phosphatase 91 U/L (39-117); Anion Gap 10 (12-20); Aspartate Amino Transferase 31 U/L (5-37); Bilirubin Total 1.3 mg/dL (0.0-1.0); Blood Urea Nitrogen 10 mg/dL (9-16); Carbon Dioxide 24 mmol/L (22-29); Chloride 108 mmol/L (96-108); Estimated Glomerular Filt Rate > 60; Glucose Random 84 mg/dL (60-115); Potassium 3.7 mmol/L (3.3-5.1); Sodium 138 mmol/L (135-145); Total Protein 7.3 g/dL (6.5-8.0)
== END 2024-12-30 11:14 | disposition home or self-care (01) ==
LOC: HO.CHCLDS 11:13
PROVIDERS: Visit Provider Internal Medicine
DX: D59.5 Paroxysmal nocturnal hemoglobinuria [Marchiafava-Micheli] (principal); D64.9 Anemia, unspecified
CPT/HCPCS: 36415; 80053; 85025

== ENCOUNTER 2025-03-01 15:34 | Outpatient (REF) | payer MEDICAID, SELFPAY ==
--- OUTSIDE RECORDS SUMMARY | 2025-03-01 18:32 | XMS_ITS | Encounter Summary ---
Author Organization [employer] Address [address] [facility] [address] 7t [place] [address] Care Team Providers Care Trimming Inspector Name Role Phone Marlon Key MD Primary Care Provider +1- [phone] Encounter Details Date Type Department Care Team (Late st Contact Info) Description 09/26/2023 Abstract [facility] CHC ADULT DENTAL [address] [place] [address] Sandhya Huddleston [address] [place] [address] Social History Tobacco Use Types Packs/Day Years [...] Upcoming Encounters Date Type Department Care Team ([facility] st Contact Info) Description 04/21/2025 1:15 PM EDT Office Visit [facility] MED & PEDS [address] [place] [address] Marlon Key MD [address] [place] [address] documented as of this encounter Visit Diagnoses Not on filedocumented in this encounter Additional Health Concerns Assessment Noted Time PHQ-9 Depression Total Score: 0 07/15/20 23 3:30 PM EDT documented as of this encounter Care Teams Trimming Inspector Relationship Specialty Start Date End Date Marlon Key MD [address] [place] [address] PCP - General Internal Medicine 01/03/16 documented as of this encounter
--- OUTSIDE RECORDS SUMMARY | 2025-03-01 18:32 | XMS_ITS | Encounter Summary ---
Author Organization [employer] Address 75 [facility] 7t [place] [address] Care Team Providers Care General Lot Attendant Name Role Phone Marlon Key MD Primary Care Provider +1- [phone] Encounter Details Date Type Department Care Team (Late st Contact Info) Description 09/16/2023 Orders Only [facility] CHC MED & PEDS [address] [place], [place] [phone] Marlon Key MD [address] [place] [address] Macrocytic anemia (Primary Dx) Social History Tobacco [...] Care Team (Late st Contact Info) Description 04/21/2025 1:15 PM EDT Office Visit [facility] MED & PEDS [address] [place] [address] Marlon Key MD [address] [place] [address] documented as of this encounter Visit Diagnoses Diagnosis Macrocytic anemia- Primary documented in this encounter Additional Health Concerns Assessment Noted Time PHQ-9 Depression Total Score: 0 07/15/20 23 3:30 PM EDT documented as of this encounter Care Teams General Lot Attendant Relationship Specialty Start Date End Date Marlon Key MD [address] [place] [address] PCP - General Internal Medicine 01/03/16 documented as of this encounter
--- OUTSIDE RECORDS SUMMARY | 2025-03-01 18:32 | XMS_ITS | Clinical Summary ---
Author Organization [facility] Address 75 [facility] 7t [place] [address] Care Team Providers Care Trustee Of Estate Name Role Phone Marlon Key MD Primary [...] Encounters Date Type Department Care Team Description 02/04/2025 Population Health Risk Score [facility] (C3) Department [address] [phone] Provider, Population Health Generic 01/27/2025 3:00 PM EST Office Visit [facility] ADULT DENTAL [address] [place] [address] Celina Barajas DDS 01/13/2025 11:00 AM EST Office Visit [facility] ADULT DENTAL [address] [place] [address] Tess Gerber from Last 3 Months Immunizations Name Administration [...] Sign Reading Time Taken Comments Blood Pressure 128/82 01/13/2025 11:05 AM EST Pulse 87 11/12/2024 3:19 PM EST [...] Description 04/21/2025 1:15 PM EDT Office Visit [facility] CHC MED & PEDS [address] [place] [address] Marlon Key MD [address] [place] [address] Health Maintenance Due Date Last Done Comments Alcohol/Substance Use Screening 2004 Family Planning (PISQ) 2007 COVID-19 Vaccine ( season) 2024 05/09/2021, 04/11/2021 SDOH Screening 04/06/2025 04/06/2024 Dental X-Ray: Bitewings 04/07/2025 04/06/20 24, 09/09/2023, 09/11/2021 Depression Screening 04/14/2025 04/14/2024, 04/14/20 24 Dental Oral Exam 07/14/2025 01/13/2025, , 09/09/2023, Additional history exists Dental Prophylaxis 07/14/2025 01/13/2025, 0 04/06/2024, 09/09/2023, Additional history exists Tobacco Screening 01/27/2026 01/27/2025 Dental X-Ray: Full Mouth 04/30/2027 024, 09/11/2021, [...] Procedure Name Priority Date/Time Associated Diagnosis Comments CASE PRESENTATION, DETAILED AND EXTENSIVE TREATMENT PLANNING Routine 01/27/2025 3:00 PM EST 3 MO RESIN-BASED COMPOSITE - 2 SURF, POSTERIOR Routine 01/27/2025 3:00 PM EST 4 DO RESIN-BASED COMPOSITE - 2 SURF, POSTERIOR Routine 01/27/2025 3:00 PM EST COMPREHENSIVE PERIODONTAL EVALUATION - NEW OR ESTABLISHED PATIENT Routine 01/13/2025 11:00 AM EST PERIODIC ORAL EVALUATION - ESTABLISHED PATIENT Routine 01/13/2025 11:00 AM EST ORAL HYGIENE INSTRUCTIONS Routine 01/13/2025 11:00 AM EST CASE PRESENTATION, DETAILED AND EXTENSIVE TREATMENT PLANNING Routine 01/13/2025 11:00 AM EST PROPHYLAXIS - ADULT Routine 01/13/2025 1 1:00 AM EST PANORAMIC RADIOGRAPHIC IMAGE Routine 04/29/2024 3:30 PM EDT HEPATITIS C AB W/REFL TO HCV RNA, QN, PCR Routine 04/14/2024 10:43 AM EDT Annual physical exam PNH (paroxysmal nocturnal hemoglobinuria) (CMS/HCC) HIV 1/2 ANTIGEN/ANTIBODY, FOURTH GENERATION W/RFL Routine 04/14/2024 10:43 AM EDT PNH (paroxysmal nocturnal hemoglobinuria) (CMS/HCC) BITEWINGS - 4 RADIOGRAPHIC IMAGES Routine 04/06/2024 9:00 AM EDT from Last 3 Months or Most Recently Relevant to Health Maintenance Results * Hepatitis C Antibody with Reflex to HCV, RNA, Quantitative, Real-Time PCR (04/14/2024 10:43 AM EDT) Hepatitis C Antibody Nonreactive Nonreactive [facility] Comment:Antibodies to HCV no t detected; does not exclude early acuteHCV infection. Blood Venous blood specimen / Unknown 04/14/2024 10:43 AM EDT 04/14/2024 2:40 PM EDT us Marlon Key MD LAB BLOOD ORDERABLES Final Result [facility] [address] [place] [phone] * HIV-1/2 Antigen and Antibodies, Fourth Generation, with Reflexes (04/14/2024 10:43 AM EDT) HIV AB/AG Nonreactive Nonreactive [facility] Comment:HIV-1 p24 Ag and/or HIV-1/HIV-2 Ab not detected.A test result that is nonreactive does not exclude thepossibility of exposure to or infection with HIV-1 and/orHIV-2. Nonreactive results in this assay for individualswith prior exposure to HIV-1 and/or HIV-2 may be due toantigen and antibody levels that are below the limit ofdetection of this assay.The [employer] HIV Ag/Ab Combo assay result andsupplemental assay results should be interpreted inconjunction with the patient's clinical presentation,history and other laboratory results. If the results areinconsistent with clinical evidence, additional testing issuggested to confirm the result. Blood Venous blood specimen / Unknown 04/14/2024 10:43 AM EDT 04/14/2024 2:40 PM EDT us Marlon Key MD LAB BLOOD ORDERABLES Final Result [facility] [address] [place] [address] [phone] from Last 3 Months or Most Recently Relevant to Health Maintenance Insurance [place] [address] C3 DENTAL-[place] MEDICAID STAND ADULT Care Teams Trustee Of Estate Relationship Specialty Start Date End Date Marlon Key MD [address] [place] [id number] PCP - General Internal Medicine 01/03/16
--- OUTSIDE RECORDS SUMMARY | 2025-03-01 18:32 | XMS_ITS | Referral Summary ---
Author Organization [facility] Address [address] [place] [address] Care Team Providers Care Environmental Science Technician Name Role Phone Marlon Key Primary Care Provider [phone] Medications doxycycline monohydrate (MONODOX) 100 mg capsuleIndicatio [...] Plan of Treatment Not on [place] [address] [place] [address] Care Teams Environmental Science Technician Relationship Specialty Start Date End Date Marlon Key [address] [place] [id number] PCP - General Internal Medicine 10/27/23
--- OUTSIDE RECORDS SUMMARY | 2025-03-01 18:32 | XMS_ITS | Encounter Summary ---
Author Organization [employer] Address 75 [facility] 7 [place] [address] Care Team Providers Care Parachute Mender Name Role Phone Marlon Key MD Primary Care Provider Reason for Visit * Reason Onset Date Comments FYI 08/20/2023 Encounter Details Date Type Department Care Team (Late st Contact Info) Description 08/20/2023 Telephone [facility] CHC MED & PEDS [address] [place] [address] Marlon Key MD [address] [place] [address] FYI Social History Tobacco Use Types Packs/Day [...] Upcoming Encounters Date Type Department Care Team ([facility] st Contact Info) Description 04/21/2025 1:15 PM EDT Office Visit [facility] MED & PEDS [address] [place] [address] Marlon Key MD [address] [place] [address] documented as of this encounter Visit Diagnoses Not on filedocumented in this encounter Additional Health Concerns Assessment Noted Time PHQ-9 Depression Total Score: 0 07/15/20 23 3:30 PM EDT documented as of this encounter Care Teams Parachute Mender Relationship Specialty Start Date End Date Marlon Key MD [address] [place] [address] PCP - General Internal Medicine 01/03/16 documented as of this encounter
--- OUTSIDE RECORDS SUMMARY | 2025-03-01 18:32 | XMS_ITS | Clinical Summary ---
Author Organization [facility] Address [address] [place] [address] Care Team Providers Care Coal Deliverer Name Role Phone Shahid Barrettronalselvin Braswell Primary Care Provider Medications doxycycline monohydrate (MONODOX) 100 mg capsuleIndicatio [...] COVID-19 Vaccine ( season) 2024 05/09/2021, 04/11/2021 Alcohol/Substance Use Screening 11/24/2024 Depression Screening and Follow-Up 11/24/2024 Social Drivers of Health Annual Screening 11/24/2024 Influenza Vaccine (Season Ended) 2025 08/05/2019, 01/03/2016 RSV Vaccine (60+ years old and patients) (1 - 1-dose 75+ series) 2067 Hepatitis B Vaccines Completed 02/27/1993, 1992, 1992 Pneumococcal Vaccine: Pediatric (0-5 Years) and At-Risk Patients (6-50 Years) Aged Out No longer eligible based on patient's age to complete this topic Insurance [facility] [place] [id number] Care Teams Coal Deliverer Relationship Specialty Start Date End Date Marlon Key [address] [place] [id number] PCP - General Internal Medicine 10/27/23
--- OUTSIDE RECORDS SUMMARY | 2025-03-01 18:32 | XMS_ITS | Encounter Summary ---
Author Organization [email or web address] Address 75 [facility] 7t [place] [address] Care Team Providers Care Dress Cutter Name Role Phone Marlon Key MD Primary Care Provider [phone] Encounter Details Date Type Department Care Team (Late st Contact Info) Description 10/03/[address] [facility] CHC MED & PEDS [address] [place], [place] [phone] Marlon Key MD [address] [place], [place] [phone] Macrocytic anemia (Primary Dx) Social History Tobacco [...] Description 04/21/2025 1:15 PM EDT Office Visit [facility]EDS [address] [place] [address] Marlon Key MD [address] [place] [address] documented as of this encounter Visit Diagnoses Diagnosis Macrocytic anemia- Primary documented in this encounter Additional Health Concerns Assessment Noted Time PHQ-9 Depression Total Score: 0 07/15/20 23 3:30 PM EDT documented as of this encounter Care Teams Dress Cutter Relationship Specialty Start Date End Date Marlon Key MD [address] [place] [address] PCP - General Internal Medicine 01/03/16 documented as of this encounter
--- OUTSIDE RECORDS SUMMARY | 2025-03-01 18:33 | XMS_ITS | Encounter Summary ---
Author Organization [employer] Address 75 [facility] 7t [place] [address] Care Team Providers Care Electrician Supervisor Substation Name Role Phone Marlon Key MD Primary Care Provider [phone] Reason for Visit * Reason Comments Med Refill Encounter Details Date Type Department Care Team ([facility] st Contact Info) Description 12/30/2023 Refill [facility] CHC MED & PEDS [address] [place], [place] [phone] Marlon Key MD [address] [place] [address] Ulcer of scrotum Social History Tobacco Use [...] Description 04/21/2025 1:15 PM EDT Office Visit [facility] MED & PEDS [address] [place] [address] Marlon Key MD [address] [place] [address] documented as of this encounter Visit Diagnoses Diagnosis Ulcer of scrotum Other specified disorder of male genital organs documented in this encounter Additional Health Concerns Assessment Noted Time PHQ-9 Depression Total Score: 0 07/15/20 23 3:30 PM EDT documented as of this encounter Care Teams Electrician Supervisor Substation Relationship Specialty Start Date End Date Marlon Key MD [address] [place] [address] PCP - General Internal Medicine 01/03/16 documented as of this encounter
--- OUTSIDE RECORDS SUMMARY | 2025-03-01 18:33 | XMS_ITS | Encounter Summary ---
Author Organization [employer] Address 75 [facility] 7t [place] [address] Care Team Providers Care Returns Supervisor Name Role Phone Marlon Key MD Primary Care Provider [phone]- [phone] Encounter Details Date Type Department Care Team (Late st Contact Info) Description 10/31/2023 Orders Only [facility] CHC MED & PEDS [address] [place], [place] [phone] Marlon Key MD [address] [place] [address] Social History Tobacco Use Types Packs/Day Years [...] 1:15 PM EDT Office Visit [facility] MED & PEDS [address] [place] [address] Marlon Key MD [address] [place] [address] documented as of this encounter Visit Diagnoses Not on filedocumented in this encounter Additional Health Concerns Assessment Noted Time PHQ-9 Depression Total Score: 0 07/15/20 23 3:30 PM EDT documented as of this encounter Care Teams Returns Supervisor Relationship Specialty Start Date End Date Marlon Key MD [address] [place] [address] PCP - General Internal Medicine 01/03/16 documented as of this encounter
--- OUTSIDE RECORDS SUMMARY | 2025-03-01 18:33 | XMS_ITS | Encounter Summary ---
Author Organization [employer] Address 75 [facility] 7t [place] [address] Care Team Providers Care Marble And Granite Polisher Name Role Phone Marlon Key MD Primary Care Provider [phone]- [phone] Encounter Details Date Type Department Care Team (Late st Contact Info) Description 11/18/2023 Orders Only [facility] CHC MED & PEDS [address] [place], [place] [phone] Marlon Key MD [address] [place] [address] Subacute dermatitis (Primary Dx) Social History Tobacco [...] Upcoming Encounters Date Type Department Care Team ([facility] st Contact Info) Description 04/21/2025 1:15 PM EDT Office Visit [facility] MED & PEDS [address] [place] [address] Marlon Key MD [address] [place] [address] documented as of this encounter Visit Diagnoses Diagnosis Subacute dermatitis- Primary Contact dermatitis and other eczema, due to unspecified cause documented in this encounter Additional Health Concerns Assessment Noted Time PHQ-9 Depression Total Score: 0 07/15/20 23 3:30 PM EDT documented as of this encounter Care Teams Marble And Granite Polisher Relationship Specialty Start Date End Date Marlon Key MD [address] [place] [address] PCP - General Internal Medicine 01/03/16 documented as of this encounter
--- OUTSIDE RECORDS SUMMARY | 2025-03-01 18:33 | XMS_ITS | Encounter Summary ---
Author Organization [facility] Address [address] [place] [address] 7 h Floor [place] [phone] Care Team Providers Care Formula Mixer Name Role Phone Marlon Key MD Primary Care Provider [phone] Encounter Details Date Type Department Care Team (Latest Contact Info) Description 09/11/2021 Abstract [facility] CONVERSIONS Dental, Provider, DDS Social History [...] Description 04/21/2025 1:15 PM EDT Office Visit [facility] CHC MED & PEDS [address] [place] [address] Marlon Key MD [address] [place] [address] documented as of this encounter Visit Diagnoses Not on filedocumented in this encounter Care Teams Formula Mixer Relationship Specialty Start Date End Date Marlon Key MD [address] [place] [address] PCP - General Internal Medicine 01/03/16 documented as of this encounter
--- OUTSIDE RECORDS SUMMARY | 2025-03-01 18:33 | XMS_ITS | Data Portability ---
Author Organization [employer] [facility] [id number] Address [address] [place] [address] Assessment No assessment recorded. Plan of Treatment [...] Time 4 OC-Direct observation Template completed [employer] 08/05/2024 17:13:50 4 OC-UDS Send Out Template DOT completed [employer] 08/05/2024 17:17:41 Imaging Results None recorded. Procedure [...] SNOMED-CT Code Diagnosis ICD10 Code Diagnosis Note [id number] [facility] [address] [place] [address] 06/26/2022 08:28:31 06/26/2022 10:38:47 [id number] [place] [id number] [address] [place] [address] 08/05/2024 16:39:56 08/05/2024 17:37:50 History and physical examination, occupation [id number] Z02.1 Health Concerns Section Related Observation LastModified by Organization Detai ls LastModified Time None Recorded Concern Status LastModified by Organization Details LastModified Time None Recorded Advance Directives Directive None Recorded Payers Encounter Date Sequence Insurance Name Policy Number Policy Rose Covered Member ID Rose Member ID Guarantor Name 08/05/2024 OC-ESCREEN Tremaine Peace OC-ESCREEN OC-ESCREE N Tremaine Peace
[2025-03-01 18:37] LABS: MANUAL DIFF FLAG NO
[2025-03-01 18:42] LABS: Basophils Percent Auto 0.6 % (0-2); Eosinophils Percent Auto 1.2 % (0-4); Hematocrit 36.5 % (42.0-52.0); Hemoglobin 12.4 g/dl (14.0-18.0); Imm Gran Abs Auto 0.01 X10*3/uL (0.00-0.03); Imm Gran Pct Auto 0.3 % (0.0-0.4); Lymphocytes Absolute Auto 1.2 X10*3/uL (1.2-4.9); Lymphocytes Percent Auto 34.4 % (20-40); Mean Corpuscular Hemoglobin 34.9 pg (27.0-33.0); Mean Corpuscular Volume 102.8 fL (80.0-98.0); Mean Platelet Volume 11.4 fL (9.4-12.4); Monocytes Absolute Auto 0.3 X10*3/uL (0.1-1.2); Monocytes Percent Auto 8.3 % (2-11); Neutrophils Absolute Auto 1.9 x10*3/uL (2.0-8.3); Neutrophils Percent Auto 55.2 % (45-73); Platelet Count 136 X10*3/uL (160-400); Red Blood Count 3.55 X10*6/uL (4.60-5.80); Red Cell Distribution Width 13.5 % (11.0-16.0); White Blood Count 3.4 X10*3/uL (4.8-10.8)
[2025-03-01 18:58] LABS: Alanine Aminotransferase 41 U/L (0-40); Albumin Level 4.6 g/dL (3.5-5.0); Alkaline Phosphatase 92 U/L (39-117); Anion Gap 10 (12-20); Aspartate Amino Transferase 31 U/L (5-37); Bilirubin Total 1.1 mg/dL (0.0-1.0); Blood Urea Nitrogen 9 mg/dL (9-16); Calcium 9.7 mg/dL (8.4-10.2); Carbon Dioxide 26 mmol/L (22-29); Chloride 106 mmol/L (96-108); Estimated Glomerular Filt Rate > 60; Glucose Random 89 mg/dL (60-115); Potassium 3.8 mmol/L (3.3-5.1); Sodium 138 mmol/L (135-145); Total Protein 6.9 g/dL (6.5-8.0)
== END 2025-03-01 15:35 | disposition home or self-care (01) ==
LOC: HO.CHCLDS 15:34
PROVIDERS: Visit Provider Internal Medicine
DX: D59.5 Paroxysmal nocturnal hemoglobinuria [Marchiafava-Micheli] (principal)
CPT/HCPCS: 36415; 80053; 85025

== ENCOUNTER 2025-08-25 09:57 | Outpatient (REF) | payer MEDICAID, SELFPAY ==
--- OUTSIDE RECORDS SUMMARY | 2025-08-25 11:10 | XMS_ITS | Clinical Summary ---
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 Encounters Date Type Department Care Team Description 08/05/2025 Telephone [facility] MED & PEDS [address] [place] [address] Marlon Key MD Chart Prep 08/01/2025 Patient Outreach [facility]IC[facility] [address] [place] [address] Marlon Key MD Pre-visit Planning (Pre visit planning LVM ) 07/11/2025 8:00 AM EDT Office Visit [facility] ADULT DENTAL [address] [place], [place] [phone] Noel Lares DDS Dental abscess (Primary Dx) 07/10/2025 Travel 06/17/2025 Refill [facility] ADULT DENTAL [address] [place] [address] Nicholas Mckeon from Last 3 Months Immunizations Immunization Administration Dates Next Due DTaP 02/10/2008, 6,12/20/1993,12/18,1992,1992 DTaP, 5 pertussis antigens 09/20/1996,,1992,09/25,1992 Hep B, adult 02/27/1993,1992,1992 HiB, unspecified 08/20/1993,1992 Hib (HbOC) 08/20/1993,1992,1992 Hib (PRP-T) 1992 IPV 09/20/1996, 4,1992,07/19 Influenza injectable quadriv alent IIV4 with preservative 08/05/2019 Influenza injectable quadriv alent preservative free 01/03/2016 Influenza, IIV3, injectable 12/26/2009, 7,12/12/2006 Influenza, seasonal, injecta ble, preservative free 09/02/2024 MMR 09/20/1996,08/20/1993 Meningococcal ACWY, unspecified 12/12/2006 Meningococcal B, Omv 05/30/2025,04/01/2025 Meningococcal MCV4O 10/02/2024 Meningococcal MPSV4 12/12/2006 Meningococcal Polysaccharide A,C,Y,W-135 TT Conjugate 11/03/2023 TD (adult), 2 Lf tetanus tox oid, preservative free, adsorbed 06/28/2003,03/28/2003 Td (adult), unspecified 06/28/2003,06/28/2003, Tdap 04/14/2024,02/25/2013 Family History Medical History Relation Name Comments Diabetes Mother Relation Name Status Comments Mother Social History Tobacco Use Types Packs/Day Years Used Date Smoking Tobacco: Never Passive Smoke Exposure: Never Smokeless Tobacco: Never Tobacco Cessation:Counseling Given: Not Answered Alcohol Use Standard Drinks/Week Comments Yes 0 (1 standard drink = 0.6 oz pur e alcohol) Depression Answer Date Recorded Patient Health Questionnaire-9 Score 2 04/14/2024 Patient Health Questionnaire-9 Score 2 04/14/2024 Last PHQ-9: Questionnaire Data Not on file 0 04/14/2024 Housing Stability Answer Date Recorded What is your housing situation today? I have jf hutton 04/11/[address] you li ve. Do you have problems with any of the following? None of the above 04/11/2025 Food Insecurity Answer Date Recorded Within the past 12 months, y ou worried that your food would run out before you got money to buy more: Never True 04/11/2025 Within the past 12 months,th e food you bought just didn't last and you didn't have enough money to get more: Never True Transportation Answer Date Recorded In the past 12 months, has l ack of transportation kept you from medical appts, meetings, work or from getting things needed for daily living? No 04/11/2025 Utilities Answer Date Recorded In the past 12 months, has t he electric, gas, oil or water company threatened to shut off services in your home? No 04/11/2025 Depression Answer Date Recorded Patient Health Questionnaire-2 Score 2 04/14/2024 Internet Access Answer Date Recorded Internet Access Q1 Yes 04/11/2025 Internet Access Q2 Not on file 04/11/2025 Sex and Gender Information Value Date Recorded Sex Assigned at Male 09/23/2022 10:29 AM EDT Legal Sex Male 10:29 AM EDT Gender Identity Male 09/23/2022 10:29 AM EDT Sexual Orientation Straight 09/23/2022 10 :29 AM EDT Last Filed Vital Signs Vital Sign Reading Time Taken Comments Blood Pressure 122/80 07/11/2025 8:07 AM EDT Pulse 80 07/11/2025 8:07 AM EDT Temperature 36.5 C (97.7 F) 04/13/2025 3:38 PM EDT Respiratory Rate 18 04/13/2025 3:38 PM EDT Oxygen Saturation 98% 04/14/2024 10:02 AM EDT Inhaled Oxygen Concentration - - Weight 83.9 kg (185 lb) 04/13/2025 3:38 PM EDT Height 170.2 cm (5' 7 ) 04/13/2025 3:38 PM EDT Body Mass Index 28.98 04/13/2025 3:38 PM EDT Plan of Treatment Upcoming Encounters Date Type Department Care Team ([facility] st Contact Info) Description 09/09/2025 2:45 PM EDT Office Visit [facility] CHC MED & PEDS [address] [place] [address] Marlon Key MD [address] [place] [address] Health Maintenance Due Date Last Done Comments Disability Screening 1992 Alcohol/Substance Use Screening 2004 Family Planning (PISQ) 2007 HPV Vaccines (1 - Male 3-dose series) 2007 Depression Screening 04/14/2025 04/14/2024, 04/14/20 24 Dental Oral Exam 07/14/2025 01/13/2025, , 09/09/2023, Additional history exists Dental Prophylaxis 07/14/2025 01/13/2025, 0 04/06/2024, 09/09/2023, Additional history exists COVID-19 Vaccine ( season) 2025 05/09/2021, 04/11/2021 Influenza Vaccine (#1) 2025 , 08/05/2019, 01/03/2016, Additional history exists SDOH Screening 04/11/2026 04/11/2025 Dental X-Ray: Bitewings 05/21/2026 05/20/20 25, 04/06/2024, 09/09/2023, Additional history exists Tobacco Screening 07/11/2026 07/11/2025 Dental X-Ray: Full Mouth 04/30/2027 024, 09/11/2021, 06/11/2021 DTaP/Tdap/Td Vaccines (9 - Td or Tdap) 04/14/2034 04/14/2024, 02/25/2013, 02/10/2008, Additional history exists Zoster Vaccines (1 of 2) 2042 RSV Patients and Patients Aged 60 years or older (1 - 1-dose 75+ series) 2067 Hepatitis B Vaccines Completed 02/27/1993, 1992, 1992 HIB Vaccines Completed 08/20/1993, 07/26, 1992, Additional history exists IPV Vaccines Completed 09/20/1996, 11/25, 1992, Additional history exists HIV Screening Completed 04/14/2024 Hepatitis C Screening Completed 04/14/2024 Meningococcal Vaccine Aged Out 10/02/2024 , 11/03/2023, 12/12/2006, Additional history exists No longer eligible based on patient's age to complete this topic Meningococcal B Vaccine Aged Out 05/30/2025, 04/01 No longer eligible based on patient's age to complete this topic Hepatitis A Vaccines Aged Out No long er eligible based on patient's age to complete this topic Pneumococcal Vaccine: Pediatrics (0 to 5 Years) and At-Risk Patients (6 to 49) Years Aged Out No longer eligible based on patient's age to complete this topic RSV under 20 months Aged Out No longe r eligible based on patient's age to complete this topic Rotavirus Vaccines Aged Out No longer eligible based on patient's age to complete this topic Procedures Procedure Name Priority Date/Time Associated Diagnosis Comments CASE PRESENTATION, DETAILED AND EXTENSIVE TREATMENT PLANNING Routine 07/11/2025 8:00 AM EDT 4 ENDODONTIC THERAPY, PREMOLAR TOOTH Routine 07/11/2025 8:00 AM EDT BITEWING - SINGLE RADIOGRAPHIC IMAGE Routine 05/20/2025 11:00 AM EDT PROPHYLAXIS - ADULT Routine 01/13/2025 1 1:00 AM EST PERIODIC ORAL EVALUATION - ESTABLISHED PATIENT Routine 01/13/2025 11:00 AM EST PANORAMIC RADIOGRAPHIC IMAGE Routine 04/29/2024 3:30 PM EDT HEPATITIS C AB W/REFL TO HCV RNA, QN, PCR Routine 04/14/2024 10:43 AM EDT Annual physical exam PNH (paroxysmal nocturnal hemoglobinuria) (CMS/HCC) HIV 1/2 ANTIGEN/ANTIBODY, FOURTH GENERATION W/RFL Routine 04/14/2024 10:43 AM EDT PNH (paroxysmal nocturnal hemoglobinuria) (CMS/HCC) from Last 3 Months or Most Recently Relevant to Health Maintenance Results * Hepatitis C Antibody with Reflex to HCV, RNA, Quantitative, Real-Time PCR (04/14/2024 10:43 AM EDT) Hepatitis C Antibody Nonreactive Nonreactive [facility] Comment:Antibodies to HCV no t detected; does not exclude early acuteHCV infection. Blood Venous blood specimen / Unknown 04/14/2024 10:43 AM EDT 04/14/2024 2:40 PM EDT us Marlon Key MD LAB BLOOD ORDERABLES Final Result Performing Organization Address City/[facility] Co de Phone Number [facility] [address] [place] [phone] * HIV-1/2 Antigen and Antibodies, Fourth Generation, with Reflexes (04/14/2024 10:43 AM EDT) HIV AB/AG Nonreactive Nonreactive [facility] Comment:HIV-1 p24 Ag and/or HIV-1/HIV-2 Ab not detected.A test result that is nonreactive does not exclude thepossibility of exposure to or infection with HIV-1 and/orHIV-2. Nonreactive results in this assay for individualswith prior exposure to HIV-1 and/or HIV-2 may be due toantigen and antibody levels that are below the limit ofdetection of this assay.The [employer] HIV Ag/Ab Combo assay result andsupplemental assay results should be interpreted inconjunction with the patient's clinical presentation,history and other laboratory results. If the results areinconsistent with clinical evidence, additional testing issuggested to confirm the result. Blood Venous blood specimen / Unknown 04/14/2024 10:43 AM EDT 04/14/2024 2:40 PM EDT us Marlon Key MD LAB BLOOD ORDERABLES Final Result [facility] [address] [place] [address] [phone] from Last 3 Months or Most Recently Relevant to Health Maintenance Insurance [place] [id number] MEDICAID STAND ADULT Care Teams Manager Convention Relationship Specialty Start Date End Date Marlon Key MD [address] [place] [phone] PCP - General Internal Medicine 01/03/16
--- OUTSIDE RECORDS SUMMARY | 2025-08-25 11:10 | XMS_ITS | Encounter Summary ---
Author Organization [employer] Address 75 [facility] 7t [place] [address] Care Team Providers Care Administrative Office Manager Name Role Phone Marlon Key MD Primary Care Provider [phone]- [phone] Encounter Details Date Type Department Care Team (Late st Contact Info) Description 09/26/2023 Abstract [facility] CHC ADULT DENTAL [address] [place] [address] Sandhya Huddleston [address] [place], [place] [phone] Social History Tobacco Use Types Packs/Day Years [...] ([facility] st Contact Info) Description 09/09/2025 2:45 PM EDT Office Visit [facility] MED & PEDS [address] [place] [address] Marlon Key MD [address] [place] [address] documented as of this encounter Visit Diagnoses Not on filedocumented in this encounter Additional Health Concerns Assessment Noted Time PHQ-9 Depression Total Score: 0 07/15/20 23 3:30 PM EDT documented as of this encounter Care Teams Administrative Office Manager Relationship Specialty Start Date End Date Marlon Key MD [address] [place] [address] PCP - General Internal Medicine 01/03/16 documented as of this encounter
--- OUTSIDE RECORDS SUMMARY | 2025-08-25 11:10 | XMS_ITS | Encounter Summary ---
Author Organization [employer] Address 75 [facility] 7t [place] [address] Care Team Providers Care Senior Engineer Name Role Phone Marlon Key MD Primary Care Provider Encounter Details Date Type Department Care Team (Late st Contact Info) Description 10/03/2023 Orders Only [facility] CHC MED & PEDS [address] [place], [place] [phone] Marlon Key MD [address] [place], [place] [phone] Macrocytic anemia (Primary Dx) Social History Tobacco [...] Care Team (Late st Contact Info) Description 09/09/2025 2:45 PM EDT Office Visit [facility] MED & PEDS [address] [place] [address] Marlon Key MD [address] [place] [address] documented as of this encounter Visit Diagnoses Diagnosis Macrocytic anemia- Primary documented in this encounter Additional Health Concerns Assessment Noted Time PHQ-9 Depression Total Score: 0 07/15/20 23 3:30 PM EDT documented as of this encounter Care Teams Senior Engineer Relationship Specialty Start Date End Date Marlon Key MD [address] [place] [address] PCP - General Internal Medicine 01/03/16 documented as of this encounter
--- OUTSIDE RECORDS SUMMARY | 2025-08-25 11:11 | XMS_ITS | Clinical Summary ---
Author Organization [facility] Address [address] [place] [address] Care Team Providers Care Senior Director Finance Name Role Phone Shahid Barrettronalselvin Braswell Primary Care Provider [phone] Medications doxycycline monohydrate (MONODOX) 100 mg capsuleIndicatio [...] 02/25/2023 02/25/2013, 06/28/2003, 03/28/2003, Additional history exists Alcohol/Substance Use Screening 11/24/2024 Depression Screening and Follow-Up 11/24/2024 Social Drivers of Health Annual Screening 11/24/2024 COVID-19 Vaccine ( season) 2025 05/09/2021, 04/11/2021 Influenza Vaccine (#1) 2025 08/05/2019, 2015 RSV Vaccine (60+ years old and patients) (1 - 1-dose 75+ series) 2067 Hepatitis B Vaccines Completed 02/27/1993, 1992, 1992 Pneumococcal Vaccine: Pediatric (0-5 Years) and At-Risk Patients (6-50 Years) Aged Out No longer eligible based on patient's age to complete this topic [place] [id number] Care Teams Senior Director Finance Relationship Specialty Start Date End Date Marlon Key [address] [place] [id number] PCP - General Internal Medicine 10/27/23
--- OUTSIDE RECORDS SUMMARY | 2025-08-25 11:11 | XMS_ITS | Clinical Summary ---
Author Organization [facility] Address [address] [place] [id number] Phone Care Team Providers Care Trim Mounter Name Role Phone Kenyetta Kuhn MD Primary Care Provider [phone] Allergies No known active allergies Medications No known medications Social History Tobacco Use Types Packs/Day Years Used Date Smoking Tobacco: Never Smokeless Tobacco: Never Tobacco Cessation:Counseling Given: Not Answered Alcohol Use Standard Drinks/Week Comments Yes 0 (1 standard drink = 0.6 oz pur e alcohol) Rarely Education Answer Date Recorded Are you interested in more education? Not on jose e 11/05/2023 Are you concerned about learning? Not on file 11/05/2023 No 11/05/2023 No 11/05/2023 Digital Access Answer Date Recorded No 11/05/2023 No 11/05/2023 Reliable internet access at home? Not on file 11/05/2023 Device with a working camera? Not on file Sex and Gender Information Value Date Recorded Sex Assigned at Male 11/04/2023 10:58 AM EST Legal Sex Male 10:56 AM EST Gender Identity Male 11/04/2023 10:58 AM EST Sexual Orientation Straight 11/04/2023 10 :58 AM EST Last Filed Vital Signs Vital Sign Reading Time Taken Comments Blood Pressure 132/71 11/10/2023 2:42 PM EST Pulse 96 11/10/2023 2:42 PM EST Temperature 36.7 C (98.1 F) 11/10/2023 2:43 PM EST Respiratory Rate 18 11/10/2023 2:40 PM EST Oxygen Saturation 98% 11/10/2023 2:42 PM EST Inhaled Oxygen Concentration - - Weight 72 kg (158 lb 11.7 oz) 11/10/2023 2:40 PM EST Height 170.1 cm (5' 6.97 ) 11/10/2023 2:40 PM ES T Body Mass Index 24.88 11/10/2023 2:40 PM EST Plan of Treatment Health Maintenance Due Date Last Done Comments DEPRESSION SCREENING 2004 HEPATITIS C SCREENING 2010 HIV ONE-TIME SCREENING (18-6 5 YEARS) 2010 Adult Td,Tdap Booster 02/25/2023 02/25/2013 , 06/28/2003, 03/28/2003 INFLUENZA VACCINE (#1) 2025 9, 01/03/2016 COVID-19 VACCINE (3 - 2024-2 6 season) 2025 05/09/2021, 04/11/2021 HIB VACCINES Completed 08/20/1993, 1992, 1992 MENINGOCOCCAL VACCINES (ACWY) Aged Out , 12/12/2006 No longer eligible based on patient's age to complete this topic SMOKING STATUS SCREENING (On ce After 26 Yrs) Completed 11/10/2023 HEPATITIS A VACCINES Aged Out No long er eligible based on patient's age to complete this topic MENINGOCOCCAL VACCINES (B) Aged Out N o longer eligible based on patient's age to complete this topic PNEUMOCOCCAL VACCINES (0-49 years) Aged Out No longer eligible b ased on patient's age to complete this topic Medical Devices Not on file Insurance [facility] [employer] C3 ACO C3 ACO C[address] [place] [place] [address] C3 ACO [facility] C3 ACO [facility] C3 ACO Care Teams Trim Mounter Relationship Specialty Start Date End Date Kenyetta Kuhn MD [address] [place] [address] [email or web address] PCP - General Internal Medicine 11/04/23 Additional Source Comments The information contained in this document represents components of the legal health record. It is not the complete legal health record.[facility]
--- OUTSIDE RECORDS SUMMARY | 2025-08-25 11:11 | XMS_ITS | Encounter Summary ---
Author Organization [email or web address] Address [address] [facility] [address] [place] [address] Care Team Providers Care Director Of Product Management Name Role Phone Marlon Key MD Primary Care Provider [phone] Encounter Details Date Type Department Care Team (Late st Contact Info) Description 10/31/2023 Orders Only [facility] MED & PEDS [address] [place], [place] [phone] Marlon Key MD [address] [place] [address] Social History Tobacco Use Types Packs/Day Years [...] ([facility] st Contact Info) Description 09/09/2025 2:45 PM EDT Office Visit [facility] MED & PEDS [address] [place] [address] Marlon Key MD [address] [place] [address] documented as of this encounter Visit Diagnoses Not on filedocumented in this encounter Additional Health Concerns Assessment Noted Time PHQ-9 Depression Total Score: 0 07/15/20 23 3:30 PM EDT documented as of this encounter Care Teams Director Of Product Management Relationship Specialty Start Date End Date Marlon Key MD [address] [place] [address] PCP - General Internal Medicine 01/03/16 documented as of this encounter
--- OUTSIDE RECORDS SUMMARY | 2025-08-25 11:11 | XMS_ITS | Encounter Summary ---
Author Organization [employer] Address [address] [facility] [address] [place] [address] Care Team Providers Care Fish House Worker Name Role Phone Marlon Key MD Primary Care Provider [phone] Reason for Visit * Reason Comments Med Refill Encounter Details Date Type Department Care Team ([facility] st Contact Info) Description 12/30/2023 Refill [facility] CHC MED & PEDS [address] [place], [place] [phone] Marlon Key MD [address] [place] [address] Ulcer of scrotum Social History Tobacco Use [...] Description 09/09/2025 2:45 PM EDT Office Visit [facility] MED & PEDS [address] [place] [address] Marlon Key MD [address] [place] [address] documented as of this encounter Visit Diagnoses Diagnosis Ulcer of scrotum Other specified disorder of male genital organs documented in this encounter Additional Health Concerns Assessment Noted Time PHQ-9 Depression Total Score: 0 07/15/20 23 3:30 PM EDT documented as of this encounter Care Teams Fish House Worker Relationship Specialty Start Date End Date Marlon Key MD [address] [place] [address] PCP - General Internal Medicine 01/03/16 documented as of this encounter
--- OUTSIDE RECORDS SUMMARY | 2025-08-25 11:11 | XMS_ITS | Encounter Summary ---
Author Organization [facility] [employer] [facility] Address [address] [facility] [address] [place] [address] Care Team Providers Care Communications Agent Name Role Phone Marlon Key MD Primary Care Provider Encounter Details Date Type Department Care Team (Latest Contact Info) Description 09/11/2021 Abstract [facility] CONVERSIONS Dental, Provider, DDS Social History Tobacco [...] Description 09/09/2025 2:45 PM EDT Office Visit [facility] CHC MED & PEDS [address] [place] [address] Marlon Key MD [address] [place] [address] documented as of this encounter Visit Diagnoses Not on filedocumented in this encounter Care Teams Communications Agent Relationship Specialty Start Date End Date Marlon Key MD [address] [place] [address] PCP - General Internal Medicine 01/03/16 documented as of this encounter
--- OUTSIDE RECORDS SUMMARY | 2025-08-25 11:11 | XMS_ITS | Encounter Summary ---
Author Organization [employer] Address [address] [facility] [address] [place] [address] Care Team Providers Care Epic Cupid Analyst Name Role Phone Marlon Key MD Primary Care Provider [phone] Encounter Details Date Type Department Care Team (Late st Contact Info) Description 09/16/2023 Orders Only [facility] CHC MED & PEDS [address] [place], [place] [phone] Marlon Key MD [address] [place], [place] [phone] Macrocytic anemia (Primary Dx) Social History Tobacco [...] Description 09/09/2025 2:45 PM EDT Office Visit [facility] CHC MED & PEDS [address] [place] [address] Marlon Key MD [address] [place] [address] documented as of this encounter Visit Diagnoses Diagnosis Macrocytic anemia- Primary documented in this encounter Additional Health Concerns Assessment Noted Time PHQ-9 Depression Total Score: 0 07/15/20 23 3:30 PM EDT documented as of this encounter Care Teams Epic Cupid Analyst Relationship Specialty Start Date End Date Marlon Key MD [address] [place] [address] PCP - General Internal Medicine 01/03/16 documented as of this encounter
--- OUTSIDE RECORDS SUMMARY | 2025-08-25 11:11 | XMS_ITS | Encounter Summary ---
Author Organization [employer] Address [address] [facility] [address] [place] [address] Care Team Providers Care Skate Hop Name Role Phone Marlon Key MD Primary Care Provider [phone] Reason for Visit * Reason Onset Date Comments FYI 08/20/2023 Encounter Details Date Type Department Care Team (Late st Contact Info) Description 08/20/2023 Telephone C [facility] MED & PEDS [address] [place], [place] [phone] Marlon Key MD [address] [place] [address] Social History Tobacco Use Types Packs/Day Years [...] Description 09/09/2025 2:45 PM EDT Office Visit [facility] MED & PEDS [address] [place] [address] Marlon Key MD [address] [place] [address] documented as of this encounter Visit Diagnoses Not on filedocumented in this encounter Additional Health Concerns Assessment Noted Time PHQ-9 Depression Total Score: 0 07/15/20 23 3:30 PM EDT documented as of this encounter Care Teams Skate Hop Relationship Specialty Start Date End Date Marlon Key MD [address] [place] [address] PCP - General Internal Medicine 01/03/16 documented as of this encounter
--- OUTSIDE RECORDS SUMMARY | 2025-08-25 11:11 | XMS_ITS | Encounter Summary ---
Author Organization [employer] Address [address] [facility] [address] [place] [address] Care Team Providers Care Smoking Pipe Repairer Name Role Phone Marlon Key MD Primary Care Provider [phone] Encounter Details Date Type Department Care Team (Late st Contact Info) Description 11/18/2023 Orders Only [facility] CHC MED & PEDS [address] [place], [place] [phone] Marlon Key MD [address] [place], [place] [phone] Subacute dermatitis (Primary Dx) Social History Tobacco [...] Upcoming Encounters Date Type Department Care Team ([facility] st Contact Info) Description 09/09/2025 2:45 PM EDT Office Visit [facility] MED & PEDS [address] [place] [address] Marlon Key MD [address] [place] [address] documented as of this encounter Visit Diagnoses Diagnosis Subacute dermatitis- Primary Contact dermatitis and other eczema, due to unspecified cause documented in this encounter Additional Health Concerns Assessment Noted Time PHQ-9 Depression Total Score: 0 07/15/20 23 3:30 PM EDT documented as of this encounter Care Teams Smoking Pipe Repairer Relationship Specialty Start Date End Date Marlon Key MD [address] [place] [address] PCP - General Internal Medicine 01/03/16 documented as of this encounter
[2025-08-25 14:31] LABS: MANUAL DIFF FLAG NO
[2025-08-25 14:40] LABS: Hematocrit 37.3 % (42.0-52.0); Hemoglobin 12.2 g/dl (14.0-18.0); Imm Gran Abs Auto 0.03 X10*3/uL (0.00-0.03); Imm Gran Pct Auto 0.8 % (0.0-0.4); Lymphocytes Absolute Auto 1.0 X10*3/uL (1.2-4.9); Mean Corpuscular HGB Conc 32.7 g/dl (31.0-36.0); Mean Corpuscular Hemoglobin 35.6 pg (27.0-33.0); Mean Corpuscular Volume 108.7 fL (80.0-98.0); NRBC Abs Auto 0.000 X10*3/uL (0.0-0.012); NRBC Pct Auto 0.0 /100WBC (0.0-0.2); Platelet Count 118 X10*3/uL (160-400); Red Blood Count 3.43 X10*6/uL (4.60-5.80); White Blood Count 3.8 X10*3/uL (4.8-10.8)
[2025-08-25 15:06] LABS: Alanine Aminotransferase 67 U/L (0-40); Albumin Level 4.9 g/dL (3.5-5.0); Alkaline Phosphatase 91 U/L (39-117); Anion Gap 7 (12-20); Aspartate Amino Transferase 40 U/L (5-37); Blood Urea Nitrogen 13 mg/dL (9-16); Calcium 9.6 mg/dL (8.4-10.2); Carbon Dioxide 32 mmol/L (22-29); Chloride 107 mmol/L (96-108); Estimated Glomerular Filt Rate > 60; Potassium 4.4 mmol/L (3.3-5.1); Sodium 142 mmol/L (135-145); Total Protein 7.2 g/dL (6.5-8.0)
== END 2025-08-25 09:58 | disposition home or self-care (01) ==
LOC: HO.CHCLDS 09:57
PROVIDERS: Visit Provider Internal Medicine
DX: D59.5 Paroxysmal nocturnal hemoglobinuria [Marchiafava-Micheli] (principal)
CPT/HCPCS: 36415; 80053; 85025